=== PATIENT | female | born 1995 | race Caucasian/White ===

== ENCOUNTER 2024-07-23 08:01 | Inpatient (IN) ==
[2024-07-23] MEDS ORDERED: LIDOCAINE 1% LOCAL 20 ML VIAL INFIL PRN (08:53)
[2024-07-23] MEDS ORDERED: OXYTOCIN 30 UNITS/NSS 30 UNITS/500 ML BAG IV PRN (09:02)
--- NOTE | 2024-07-23 09:05 | History & Physical Report ---
Date of Service July 23, 2024 Assessment & Plan (1) Hyperlipidemia: Present on Admission?: Yes (2) Obesity: Present on Admission?: Yes (3) Hypothyroidism: Present on Admission?: Yes (4) Encounter for induction of labor: Present on Admission?: Yes (5) Post term over 40 weeks: Present on Admission?: Yes Plan Admit to L and D Regular diet x 3 then NPO/IV Fluids Preeclampsia labs , total pr/cr ration Cervidil PV for cervical ripening Eventually AROM, Pitocin to augment ;labor Pain meds including epidural as the desires History of Present Illness Chief Complaint: induction of labor for post date and high blood pressure on arrival Primary Care Provider: Dipak Nichols PA-C pt 29 yr old came to L and D c/o regular uterine contractions q 5 min. Denies vaginal bleeding, leaking of fluid per vagina , head aches, blurry vision, epigastric pain etc. reports good movement. On arrival, pt has elevated blood pressures. Allergies Allergy/AdvReac Type Severity Reaction Status Date / Time amoxicillin Allergy Rash Unverified 10/06/23 07:37 Home Medications Medication Instructions Recorded Confirmed Type levothyroxine 125 mcg tablet 125 mcg PO DAILY #90 tabs 06/20/24 07/23/24 Rx 1 tab PO DAILY 07/23/24 07/23/24 History Patient History Medical History History of vesicoureteral reflux Repair 2004 Hypothyroidism Surgical History [place] teeth removed No pertinent past surgical history Family History Father Hypertension Dyslipidemia Grandmother (Maternal) Hypertension Dyslipidemia Hypothyroidism Social History Smoking Status: Former smoker packs per day: 0.5; Hx Alcohol Use: Yes Alcohol Intake Frequency Comment: Occasional Preferred Language: Portuguese Feels Safe at Home: Yes OB History Review of Systems All systems reviewed & are unremarkable except as noted in HPI & below as per Subjective / HPI as per Subjective / HPI as per Subjective / HPI Physical Exam Constitutional: WD/WN, vitals as above Respiratory: normal respiratory effort, lungs clear to auscultation Cardiovascular: RRR, no murmur, no edema Gastrointestinal (Abdomen): normal bowel sounds, soft, nontender, no hepatosplenomegaly Skin: no rashes, warm and dry Psychiatric: A+Ox3, euthymic affect Genitourinary: no vaginal lesions, no adnexal mass Speculum/Bimanual Exam: normal appearance of the vagina OB Exam Abdomen: + fundal height (42 cm), + heart tones, + vertex and + estimated weight (3200 gms) Manual OB Exam: + cervical dilation fingertip, + cervical effacement 50% and + station -2 OB Exam Monitor Tracing: + external FHT monitor used, + external uterine monitor used, + category I and + normal FHT variability Results & Data Vital Signs (Past 12 Hours) Vital Signs Pulse BP 07/23/24 08:37 61 07/23/24 08:37 171/92 H 07/23/24 08:20 63 160/103 H 07/23/24 08:18 60 152/100 H Monitoring External Monitor 140s, Good variability, positive accelerations Tocodynamometer No uterine contractions (1) Hyperlipidemia Hyperlipidemia type: unspecified Qualified Code(s): E78.5 - Hyperlipidemia, unspecified (2) Obesity Obesity classification: unspecified obesity classification (3) Hypothyroidism 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
--- OUTSIDE RECORDS SUMMARY | 2024-07-23 09:21 | External Medical Summary | Summary of Care ---
Author Name Unknown Organization [facility] Address [address] [place] [address] Phone [phone] Care Team Providers Care Hospital Staff Pharmacist Name Role Phone Unavailable Primary Care Provider Unavailabl e Reason for Visit * Reason Comments Return Visit Encounter Details Date Type Department Care Team (Latest Contact Info) Description 07/05/2024 9:15 AM EST Office Visit Gynecology/Obstetri [facility] [address] [place] [address] Art Acevedo MD [address] [place] [address] Encounter for supervision of normal first in third trimester*; Obesity in , antepartum; Hypothyroidism affecting in third trimester; Family history of vesicoureteral reflux; Health counseling Allergies Active Allergy Reactions Criticality Noted Date Comments Amoxicillin Rash 12/06/2023 documented as of this encounter (statuses as of 07/05/2024) Medications Levothyroxine Sodium 125 MCG Oral Capsule (Tirosint) Take 1 Capsule by mouth daily first thing in the morning. (at least 30 min prior to breakfast or other meds) Active 27-0.8 MG Oral Tablet Take 1 Tablet by mouth daily at noon. Active documented as of this encounter (statuses as of 07/05/2024) Active Problems Problem Noted Date Diagnosed Date Health counseling 05/27/2024 Overview (07/05/2024): Problem Action Taken Date entered Entered by Date resolved Depression Denies any current symptoms. Concerned over PPD- Will notify office with any concerns 05/27/2024 Dot Flores RN 05/27/2024 First Support noted 05/27/2024 Dot Flores RN 05/27/2024 Poor dental hygiene Has not been to dentist in greater than 6 months. Encouraged. Office phone number given for [facility] 05/27/2024 Dot Flores RN 05/27/2024 Smoking/tobacco abuse Smoking Education- was vaping prior to . Quit with 05/27/2024 Dot Flores RN 05/27/24 nutrition Attending [facility] - plans to breastfeed has pump already 05/27/2024 Dot Flores RN 05/27/2024 Problem Action Taken Date entered Entered by Date resolved Current needs or questions Patient denies having any current needs or questions 06/10/2024 Lara Do RN 06/10/2024 Problem Action Taken Date entered Entered by Date resolved Current needs or questions Patient denies having any current needs or questions 06/28/2024 Kailash Heredia RN 06/28/24 Problem Action Taken Date entered Entered by Date resolved Current needs or questions Patient denies having any current needs or questions 07/05/2024 Dot Flores RN 07/05/2024 Supervision of normal first 12/20/2023 Obesity in , antepartum 12/20/2023 Overview (01/18/2024): Class 1 The patient's pre-gravid BMI is 33.31. Early GTT normal Hypothyroidism affecting 12/20/2023 Overview (05/27/2024): Sees endocrine at [facility] ([facility] TSH 0.35 on 11/23/23 TSH Results: Lab Results Component Value Date/Time TSH - [facility] 1.00 05/06/2024 12:24 PM Family history of vesicoureteral reflux 06/26/20 24 Overview (12/20/2023): Pt had at , surgically repaired Hyperlipidemia 12/19/2023 Hypothyroidism 12/19/2023 Insulin resistance 12/19/2023 Obesity 12/19/2023 Estimated Date of Delivery Comme nts Yes 07/22/2024 Based on Ultraso und documented as of this encounter (statuses as of 07/05/2024) Immunizations Name Administration Dates Next Due RSV Vac., Bivalent, Perfusion F, Pf,0.5 Ml (Abry svo) 06/28/2024 TDAP, Age 7 and older, IM (Adacel) 05/06/2024 documented as of this encounter Social History Tobacco Use Types Packs/Day Years Used Date Smoking Tobacco: Former Cigarettes Vaporizer Smokeless Tobacco: Never Alcohol Use Standard Drinks/Week Comments Not Currently 0 (1 standard drink = 0.6 oz pur e alcohol) Hunger Vital Sign Answer Date Recorded Within the past 12 months, y ou worried that your food would run out before you got the money to buy more. Never true 11/22/19 Within the past 12 months, t he food you bought just didn't last and you didn't have money to get more. Never true 11/22/2023 [place] Depression Scale Answer Date Recorded [place] Depression Scale Total 7 05/27/2024 The thought of harming myself has occurred to me . Never 05/27/2024 Childcare Answer Date Recorded Do you feel overwhelmed with taking care of a child, family member or friend? No 11/22/2023 Does your family need help f inding childcare? (Household - for ages 0-17 years) Not on file 11/22/2023 Clothing Answer Date Recorded Have you been unable to get clothing when it was really needed? No 11/22/2023 Is your family able to get c lothes or diapers when needed? (Household - for ages 0-17 years) Not on file 11/22/2023 Personal Safety Answer Date Recorded Do you feel unsafe or have concerns for your saf ety? No 11/22/2023 Do you have concerns for you r family's safety? (Household - for ages 0-17 years) Not on file 11/22/2023 Utilities Answer Date Recorded Do you have trouble paying y our heating, water, or electric bill? No 11/22/2023 Is your family able to pay t he heat, water, or electric bill? (Household - for ages 0-17 years) Not on file 11/22/2023 Does your family have access to good internet? (Household - for ages 0-17 years) Not on file 11/22/2023 Employment Status Answer Date Recorded Are you unemployed or without regular income? No 11/22/2023 Does the household have a re lar source of income? (Household - for ages 0-17 years) Not on file 11/22/2023 Social Connections Answer Date Recorded How often do you feel lonely or isolated from th ose around you? Never 11/22/2023 Financial Resource Strain Answer Date R ecorded Do you have any trouble payi ng for your medications, or do you think you might in the future? No 11/22/2023 Does your family have troubl e paying for medicine? (Household - for ages 0-17 years) Not on file 11/22/2023 Transportation Needs Answer Date Record ed READ ONLY Do you have troubl e getting a ride to medical visits or work? Never True 11/22/2023 Does your family have a hard time getting a ride to doctors visits? (Household - for ages 0-17 years) Not on file 11/22/2023 Has lack of transportation k ept you from medical appointments, meetings, work, or from getting things needed for daily living? Check all that apply. (Adult - for ages 18 years and over) Not on file 11/22/2023 Do you (or your family) have trouble finding or paying for a ride (transportation)? (Household - for ages 0-17 years) Not on file 11/22/2023 Housing Stability Answer Date Recorded Do you currently live in a s helter or have no steady place to sleep at night? No 11/22/2023 READ ONLY Do you think you a re at risk of becoming homeless? No 11/22/2023 Does your family worry about paying for your home or becoming homeless? (Household - for ages 0-17 years) Not on file 0 11/22/2023 Are you homeless or worried that you might be in the future? (Adult - for ages 18 years and over) Not on file Are you (or your family) hemalatha eless or worried that you might be in the future? (Household - for ages 0-17 years) Not on file Food Insecurity Answer Date Recorded Do you need food for this week? No 11/22/2023 Are you able to get enough f ood for your family? (Household - for ages 0-17 years) Not on file 11/22/2023 Does your family need food t his week? (Household - for ages 0-17 years) Not on file 11/22/2023 Do you always have enough fo od for your family? (Household - for ages 0-17 years) Not on file 11/22/2023 Estimated Date of Delivery Comme nts Yes 07/22/2024 Based on Ultraso und Sex and Gender Information Value Date Recorded Sex Assigned at Female 11/22/2023 9:19 AM EDT Legal Sex Female 5:42 AM EST Gender Identity Female 11/22/2023 9:19 AM EDT Sexual Orientation Straight 11/22/2023 9: 27 AM EDT documented as of this encounter Last Filed Vital Signs Vital Sign Reading Time Taken Comments Blood Pressure 124/84 07/05/2024 9:28 AM EST Pulse - - Temperature - - Respiratory Rate - - Oxygen Saturation - - Inhaled Oxygen Concentration - - Weight 110.2 kg (243 lb) 07/05/2024 9:28 AM EST Height 163.8 cm (5' 4.5") 07/05/2024 9:28 AM EST Body Mass Index 41.07 07/05/2024 9:28 AM EST documented in this encounter Progress Notes * Art Acevedo MD - 07/05/2024 9:41 AM EST Pt doing well No complaints RTC 1 week * Charisma Fontanez LPN - 07/05/2024 9:28 AM EST 37w4d Denies any concerns documented in this encounter Nursing Notes * Dot Flores RN - 07/05/2024 9:33 AM EST Patient seen by [facility]. documented in this encounter Plan of Treatment Upcoming Encounters Date Type Department Care Team (Late st Contact Info) Description 07/11/2024 4:45 PM EST Office Visit Gynecology/Obstetrics [facility] [address] [place] [address] Libby Ferguson PA-C [address] [place] [address] Nurse C[facility] [address] [place] [address] Health Maintenance Due Date Last Done Comments Depression Screening 2007 COVID-19 Vaccine (2023- season) 2024 Influenza Vaccine (FLU shot) (#1) 2024 TSH 05/06/2025 05/06/2024 Pap Smear 12/19/2026 12/20/2023 DTap/Tdap Vaccines (7 - Td or Tdap) 05/06/2034 05/06/2024, 04/26/2000, 05/17/1996, Additional history exists Hepatitis B Vaccine Completed 01/08/1998, 08/14/1997, 10/28/1996 Pneumococcal Vaccine: Pediatrics (0 to 5 Years) and At-Risk Patients (6 to 18 Years and 19+ Years) Aged Out 10/16/2006 No longer eligib le based on patient's age to complete this topic MENINGOCOCCAL (MENACTRA/MENVEO) Completed 06/21/2013 Gonorrhea / Chlamydia Screen Discontinued 12/20/2023 HPV (Gardasil) Vaccine Aged Out No lo nger eligible based on patient's age to complete this topic documented as of this encounter Medical Devices Not on filedocumented as of this encounter Visit Diagnoses Diagnosis Encounter for supervision of normal first in third trimester- Primary Supervision of normal first Obesity in , antepartum Obesity complicating , childbirth, or the puerperium, antepartum condition or complication Hypothyroidism affecting in third trimester Family history of vesicoureteral reflux Family history of other genitourinary diseases Health counseling Other specified counseling documented in this encounter
--- OUTSIDE RECORDS SUMMARY | 2024-07-23 09:21 | External Medical Summary | Summary of Care ---
Author Name Unknown Organization [facility] Address [address] [place] [address] Phone [phone] Care Team Providers Care Neonatal Icu Coordinator Name Role Phone Unavailable Primary Care Provider Unavailabl e Reason for Visit * Reason Comments Return Visit Encounter Details Date Type Department Care Team (Late st Contact Info) Description 07/11/2024 4:45 PM EST Office Visit [facility]necology/[facility]stetri [facility] [address] [facility] [place] [address] Libby Ferguson PA-C [address] [place] [address] Nurse [facility] [address] [place] [address] Encounter for supervision of normal first in third trimester*; Obesity in , antepartum; Hypothyroidism affecting in third trimester; Family history of vesicoureteral reflux; Health counseling Allergies Active Allergy Reactions Criticality Noted Date Comments Amoxicillin Rash 12/06/2023 documented as of this encounter (statuses as of 07/11/2024) Medications Levothyroxine Sodium 125 MCG Oral Capsule (Tirosint) Take 1 Capsule by mouth daily first thing in the morning. (at least 30 min prior to breakfast or other meds) Active 27-0.8 MG Oral Tablet Take 1 Tablet by mouth daily at noon. Active documented as of this encounter (statuses as of 07/11/2024) Active Problems Problem Noted Date Diagnosed Date Health counseling 05/27/2024 Overview (07/11/2024): Problem Action Taken Date entered Entered by Date resolved Depression Denies any current symptoms. Concerned over PPD- Will notify office with any concerns 05/27/2024 Dot Flores RN 05/27/2024 First Support noted 05/27/2024 Dot Flores RN 05/27/2024 Poor dental hygiene Has not been to dentist in greater than 6 months. Encouraged. Office phone number given for [facility] 05/27/2024 Dot Flores RN 05/27/2024 Smoking/tobacco abuse Smoking Education- was vaping prior to . Quit with 05/27/2024 Dot Flores RN 05/27/24 nutrition Attending [facility] - plans to breastfeed has pump already [...] or questions 07/05/2024 Dot Flores RN 07/05/2024 Problem Action Taken Date entered Entered by Date resolved Current needs or questions Patient denies having any current needs or questions 07/11/2024 Dot Flores RN 07/11/2024 Supervision of normal first 12/20/2023 Obesity in , antepartum 12/20/2023 Overview (01/18/2024): Class 1 The patient's pre-gravid BMI is 33.31. Early GTT normal Hypothyroidism affecting 12/20/2023 Overview (05/27/2024): Sees endocrine at [facility] ([facility]) TSH 0.35 on 11/23/23 TSH Results: Lab Results Component Value Date/Time TSH - [facility] 1.00 05/06/2024 12:24 PM Family history of vesicoureteral reflux 12/20/19 Overview (12/20/2023): Pt had at , surgically repaired Hyperlipidemia 12/19/2023 Hypothyroidism 12/19/2023 Insulin resistance 12/19/2023 Obesity 12/19/2023 Estimated Date of Delivery Comme nts Yes 07/22/2024 Based on Ultraso und documented as of this encounter (statuses as of 07/11/2024) Immunizations Name Administration Dates Next Due RSV [...] money to get more. Never true 11/22/2023 [place] Depression Scale Answer Date Recorded [place] Depression Scale Total 7 05/27/2024 The thought [...] 11/22/2023 Does the household have a re gular source of income? (Household - for ages [...] Sign Reading Time Taken Comments Blood Pressure 122/78 07/11/2024 4:30 PM EST Pulse - - Temperature - - Respiratory Rate - - Oxygen Saturation - - Inhaled Oxygen Concentration - - Weight 115.2 kg (254 lb) 07/11/2024 4:30 PM EST Height 163.8 cm (5' 4.5") 07/11/2024 4:30 PM EST Body Mass Index 42.93 07/11/2024 4:30 PM EST documented in this encounter Progress Notes * Libby Ferguson PA-C - 07/11/2024 5:30 PM EST 38w3d Denies LOF, VB. Having BH contractions. Has been having menstrual like cramping throughout which has been her normal. Would like cervical check. [place] pop in abdomen yesterday, no pain. No gush of fluid or leaking of any kind. Feeling baby move when she presses on him. Pt states has not really felt baby move throughout as she has anterior placenta. Does not really do kick counts. Unsure if she would get 10 movements in 2 hours. Reviewed IOL, pt would like to schedule for postdates. Scheduled 07/30/2024 based on availability. ASSESSMENT assessment with Non-stress Test completed on 07/11/2024 at 38.3 weeks gestation for indicationof decreased movement heart baseline: 140 bpm Variability: Moderate Decelerations: absent Accelerations: present Contractions: None NST start time: 16:58 NST stop time: 15:19 NST strip reviewed, interpreted, and approved by OB provider, Libby Ferguson PA-C. NST strip stored in clinic storage file RTC in 1 week Labor precautions Libby Ferguson PA-C * Charisma Fontanez LPN - 07/11/2024 4:31 PM EST 38w3d Would like cervix check documented in this encounter Nursing Notes * Dot Flores RN - 07/11/2024 4:39 PM EST Patient seen by [facility] [employer] Deputy Director. Denies any concerns. documented in this encounter Plan of Treatment Upcoming Encounters Date Type Department Care Team (Late st Contact Info) Description 07/18/2024 8:00 AM EST Office Visit Gynecology/Obstetrics [facility] [address] [place] [phone] Yajaira Núñez CRNP [address] [place] [address] Health Maintenance Due Date Last Done Comments [...]
--- OUTSIDE RECORDS SUMMARY | 2024-07-23 09:21 | External Medical Summary | Summary of Care ---
Author Name Unknown Organization [facility] Address [address] [place] [address] Phone [phone] Care Team Providers Care Yoghurt Maker Name Role Phone Unavailable Primary Care Provider Unavailabl e Reason for Visit * Reason Comments Return Visit Encounter Details Date Type Department Care Team (Latest Contact Info) Description 07/18/2024 8:00 AM EST Office Visit Gynecology/Obstetri [facility] [address] [place] [address] Yajaira Núñez CRNP [address] [place] [address] Encounter for supervision of normal first in third trimester*; Obesity in , antepartum; Hypothyroidism affecting in third trimester; Family history of vesicoureteral reflux; Health counseling Allergies Active Allergy Reactions Criticality Noted Date Comments Amoxicillin Rash 12/06/2023 documented as of this encounter (statuses as of 07/18/2024) Medications Levothyroxine Sodium 125 MCG Oral Capsule (Tirosint) Take 1 Capsule by mouth daily first thing in the morning. (at least 30 min prior to breakfast or other meds) Active 27-0.8 MG Oral Tablet Take 1 Tablet by mouth daily at noon. Active documented as of this encounter (statuses as of 07/18/2024) Active Problems Problem Noted Date Diagnosed Date Health counseling 05/27/2024 Overview (07/18/2024): Problem Action Taken Date entered Entered by Date resolved Depression Denies any current symptoms. Concerned over PPD- Will notify office with any concerns 05/27/2024 Dot Flores RN 05/27/2024 First Support noted 05/27/2024 Dot Flores RN 05/27/2024 Poor dental hygiene Has not been to dentist in greater than 6 months. Encouraged. Office phone number given for [facility] 05/27/2024 Dot Flores RN 05/27/2024 Smoking/tobacco abuse Smoking Education- was vaping prior to . Quit with 05/27/2024 Dot Flores RN 05/27/[address] [facility] - plans to breastfeed has [...] or questions 07/11/2024 Dot Flores RN 07/11/2024 Problem Action Taken Date entered Entered by Date resolved Current needs or questions Patient denies having any current needs or questions 07/18/2024 Dot Flores RN 07/18/2024 Supervision of normal first 12/20/2023 Obesity in , antepartum 12/20/2023 Overview (01/18/2024): Class 1 The patient's pre-gravid BMI is 33.31. Early GTT normal Hypothyroidism affecting 12/20/2023 Overview (05/27/2024): Sees endocrine at [facility] ([facility]) TSH 0.35 on 11/23/23 TSH Results: Lab Results Component Value Date/Time TSH - [facility] 1.00 05/06/2024 12:24 PM Family history of vesicoureteral reflux 12/20/19 Overview (12/20/2023): Pt had at , surgically repaired Hyperlipidemia 12/19/2023 Hypothyroidism 12/19/2023 Insulin resistance 12/19/2023 Obesity 12/19/2023 Estimated Date of Delivery Comme nts Yes 07/22/2024 Based on Ultraso und documented as of this encounter (statuses as of 07/18/2024) Immunizations Name Administration Dates Next Due RSV [...] money to get more. Never true 11/22/2023 [place] Depression Scale Answer Date Recorded [place] Depression Scale Total 7 05/27/2024 The thought [...] Sign Reading Time Taken Comments Blood Pressure 122/74 07/18/2024 7:59 AM EST Pulse - - Temperature - - Respiratory Rate - - Oxygen Saturation - - Inhaled Oxygen Concentration - - Weight 115.2 kg (254 lb) 07/18/2024 7:59 AM EST Height 163.8 cm (5' 4.5") 07/18/2024 7:59 AM EST Body Mass Index 42.93 07/18/2024 7:59 AM EST documented in this encounter Progress Notes * Yajaira Núñez CRNP - 07/18/2024 8:18 AM EST 39w3d No complaints. Intermittent BH contractions. Discussed contraception, she is not planning to use any. States she underwent infertility treatmetns in the past, that did not result in , then became spontaneously. Discussed that she could have another spontaneous very quickly, and she needs to be prepared for that if she chooses to use no contraception. Has IOL 2/4. Requesting cervical check. Parking Analyst Documentation Provider requested manager of application development. Name of manager of application development: SHYANNE Ware * Charisma Fontanez LPN - 07/18/2024 7:59 AM EST 39w3d Would like cervix checked documented in this encounter Plan of Treatment Upcoming Encounters Date Type Department Care Team (Late st Contact Info) Description 07/25/2024 9:15 AM EST Office Visit Gynecology/[facility] [address] [place] [address] Luke Danielle MD [address] [place] [phone] Health Maintenance Due Date Last Done Comments [...]
--- OUTSIDE RECORDS SUMMARY | 2024-07-23 09:21 | External Medical Summary | Summary of Care ---
Author Name Unknown Organization [facility] Address [address] [place] [address] Phone [phone] Care Team Providers Care Manager Wind Name Role Phone Unavailable Primary Care Provider Unavailabl e Encounter Details Date Type Department Care Team (Late st Contact Info) Description 07/15/2024 Population Health External Data Unspecified Department Allergies Active Allergy Reactions Criticality Noted Date Comments Amoxicillin Rash 12/06/2023 documented as of this encounter (statuses as of 07/15/2024) Medications Levothyroxine Sodium 125 MCG Oral Capsule (Tirosint) Take 1 Capsule by mouth daily first thing in the morning. (at least 30 min prior to breakfast or other meds) Active 27-0.8 MG Oral Tablet Take 1 Tablet by mouth daily at noon. Active documented as of this encounter (statuses as of 07/15/2024) Active Problems Problem Noted Date Diagnosed Date [...] months. Encouraged. Office phone number given for [facility] 05/27/2024 Dot Flores RN 05/27/2024 Smoking/tobacco abuse Smoking Education- was vaping prior to . Quit with 05/27/2024 Dot Flores RN 05/27/24 nutrition Attending [facility] - plans to breastfeed has pump already [...] affecting 12/20/2023 Overview (05/27/2024): Sees endocrine at [facility] ([facility]) TSH 0.35 on 11/23/23 TSH Results: Lab Results Component Value Date/Time TSH - [facility] 1.00 05/06/2024 12:24 PM Family history of vesicoureteral reflux 12/20/19 Overview (12/20/2023): Pt had at , surgically repaired Hyperlipidemia 12/19/2023 Hypothyroidism 12/19/2023 Insulin resistance 12/19/2023 Obesity 12/19/2023 Estimated Date of Delivery Comme nts Yes 07/22/2024 Based on Ultraso und documented as of this encounter (statuses as of 07/15/2024) Immunizations Name Administration Dates Next Due RSV [...] money to buy more. Never true 11/22/19 24 Within the past 12 months, t he food you bought just didn't last and you didn't have money to get more. Never true 11/22/2023 [place] Depression Scale Answer Date Recorded [place] Depression Scale Total 7 05/27/2024 The thought [...] AM EDT documented as of this encounter Plan of Treatment Upcoming Encounters Date Type Department Care Team (Late st Contact Info) Description 07/18/2024 8:00 AM EST Office Visit Gynecology/Obstetrics [place] [address] [place] [address] Yajaira Núñez CRNP [address] [place] [address] Health Maintenance Due Date Last Done Comments Depression Screening 2007 COVID-19 Vaccine ( season) 2024 Influenza Vaccine (FLU shot) (#1) [...]
--- OUTSIDE RECORDS SUMMARY | 2024-07-23 09:21 | External Medical Summary | Summary of Care ---
Author Name Unknown Organization [facility] Address [address] [place] [address] Phone [phone] Care Team Providers Care Attorney Recruiter Name Role Phone Unavailable Primary Care Provider Unavailabl e Reason for Visit * Reason Comments Return Visit Encounter Details Date Type Department Care Team (Latest Contact Info) Description 07/18/2024 8:00 AM EST Office Visit Gynecology/Obstetri [place] [address] [place] [address] Yajaira Núñez CRNP [address] [place] [address] Encounter for supervision of normal first in [...] months. Encouraged. Office phone number given for [facility] 05/27/2024 Dot Flores RN 05/27/2024 Smoking/tobacco abuse Smoking Education- was vaping prior to . Quit with 05/27/2024 Dot Flores RN 05/27/24 nutrition Attending [facility] - plans to breastfeed has pump [...] affecting 12/20/2023 Overview (05/27/2024): Sees endocrine at [facility] ([place]) TSH 0.35 on 11/23/23 TSH Results: [...] money to get more. Never true 11/22/2023 [place] Depression Scale Answer Date Recorded [place] Depression Scale Total 7 05/27/2024 The thought [...] contraception. Has IOL 2/4. Requesting cervical check. Library Serials Assistant Documentation Provider requested telegraph plant maintainer. Name of telegraph plant maintainer: SHYANNE Ware * Charisma Fontanez LPN - 07/18/2024 7:59 AM EST [id number] Would like cervix checked documented in this encounter Plan of Treatment Upcoming Encounters Date Type Department Care Team (Late st Contact Info) Description 07/25/2024 9:15 AM EST Office Visit Gynecology/Obstetrics [facility] [address] [place] [address] Luke Danielle MD [address] [place] [phone] Health Maintenance Due Date Last Done Comments [...]
--- OUTSIDE RECORDS SUMMARY | 2024-07-23 09:22 | External Medical Summary | Summary of Care ---
Author Name Unknown Organization [facility] Address [address] [place] [address] Phone [phone] Care Team Providers Care Commercial Maintenance Technician Name Role Phone Unavailable Primary Care Provider Unavailabl e Reason for Visit * Reason Comments Return Visit Encounter Details Date Type Department Care Team (Late st Contact Info) Description 06/28/2024 2:45 PM EST Office Visit Gynecology/Obstetri [place] [address] [facility] [place] [address] Art Acevedo MD [address] [place] [address] Nurse César [facility] [place] [address] [place] [address] Encounter for supervision of normal first in third trimester*; Obesity in , antepartum; Hypothyroidism affecting in third trimester; Family history of vesicoureteral reflux; Health counseling Allergies Active Allergy Reactions Criticality Noted Date Comments Amoxicillin Rash 12/06/2023 documented as of this encounter (statuses as of 06/28/2024) Medications Levothyroxine Sodium 125 MCG Oral Capsule (Tirosint) Take 1 Capsule by mouth daily first thing in the morning. (at least 30 min prior to breakfast or other meds) Active 27-0.8 MG Oral Tablet Take 1 Tablet by mouth daily at noon. Active documented as of this encounter (statuses as of 06/28/2024) Active Problems Problem Noted Date Diagnosed Date Health counseling 05/27/2024 Overview (06/28/2024): Problem Action Taken Date entered Entered by Date resolved Depression Denies any current symptoms. Concerned over PPD- Will notify office with any concerns 05/27/2024 Dot Flores RN 05/27/2024 First Support noted 05/27/2024 Dot Flores RN 05/27/2024 Poor dental hygiene Has not been to dentist in greater than 6 months. Encouraged. Office phone number given for [facility] 05/27/2024 Dot Flores RN 05/27/2024 Smoking/tobacco abuse Smoking Education- was vaping prior to . Quit with 05/27/2024 Dot Flores RN 05/27/[address] [facility] - plans to breastfeed has pump already [...] or questions 06/28/2024 Kailash Heredia RN 06/28/24 Supervision of normal first 12/20/2023 Obesity in , antepartum 12/20/2023 Overview (01/18/2024): Class 1 The patient's pre-gravid BMI is 33.31. Early GTT normal Hypothyroidism affecting 12/20/2023 Overview (05/27/2024): Sees endocrine at [facility] ([facility]) TSH 0.35 on 11/23/23 TSH Results: Lab Results Component Value Date/Time TSH - [facility] 1.00 05/06/2024 12:24 PM Family history of vesicoureteral reflux 12/20/19 Overview (12/20/2023): Pt had at , surgically repaired Hyperlipidemia 12/19/2023 Hypothyroidism 12/19/2023 Insulin resistance 12/19/2023 Obesity 12/19/2023 Estimated Date of Delivery Comme nts Yes 07/22/2024 Based on Ultraso und documented as of this encounter (statuses as of 06/28/2024) Immunizations Name Administration Dates Next Due RSV [...] money to get more. Never true 11/22/2023 [place] Depression Scale Answer Date Recorded [place] Depression Scale Total 7 05/27/2024 The thought [...] AM EDT documented as of this encounter Progress Notes * Art Acevedo MD - 06/28/2024 3:17 PM EST Pt doing well No complaints GBs culx done documented in this encounter Nursing Notes * Charisma Fontanez LPN - 06/28/2024 3:58 PM EST Patient here for rsv injection. Patient doing well no complaints. Injection given IM as ordered. Patient tolerated well. Patient to follow up as directed. Patient instructed to call if any complications. Patient verbalized understanding of instructions given and her follow up appt for 1 week Injection site: Left Deltoid Medication Source: Dispensed stock medication * Charisma Fontanez LPN - 06/28/2024 3:02 PM EST [id number] Nbeed gbs Rsv * Kailash Heredia RN - 06/28/2024 3:02 PM EST Patient seen by [facility] Payroll Assistant. Patient denies any questions or concerns. documented in this encounter Plan of Treatment Upcoming Encounters Date Type Department Care Team (Late st Contact Info) Description 07/05/2024 9:15 AM EST Office Visit Gynecology/Obstetrics [facility] [address] [place] [address] Art Acevedo MD [address] [place] [address] Pending Results Name Type Priority Associated Diagnoses Date /Time GROUP B STREP CULTURE/PCR Lab Routine Encounter for supervision of normal first in third trimester 06/28/2024 3:17 PM EST Health Maintenance Due Date Last Done Comments [...]
--- OUTSIDE RECORDS SUMMARY | 2024-07-23 09:22 | External Medical Summary | Summary of Care ---
Author Name Unknown Organization [facility] Address [address] [place] [address] Phone [phone] Care Team Providers Care Geophysical Prospecting Surveyor Name Role Phone Unavailable Primary Care Provider Unavailabl e Encounter Details Date Type Department Care Team (Late st Contact Info) Description 06/04/2024 10:15 AM EST Office Visit Gynecology/Obstetri [place] [address] [facility] [place] [address] Yoselin Duffy CRNP [address] [place] [address] César Non Stress Tests [place] [address] [place] [address] Decreased movements in third trimester, single or unspecified fetus*; Encounter for supervision of normal first in third trimester; Obesity in , antepartum; Hypothyroidism affecting in third trimester; Family history of vesicoureteral reflux; Health counseling Allergies Active Allergy Reactions Criticality Noted Date Comments Amoxicillin Rash 12/06/2023 documented as of this encounter (statuses as of 06/04/2024) Medications Levothyroxine Sodium 125 MCG Oral Capsule (Tirosint) Take 1 Capsule by mouth daily first thing in the morning. (at least 30 min prior to breakfast or other meds) Active 27-0.8 MG Oral Tablet Take 1 Tablet by mouth daily at noon. Active documented as of this encounter (statuses as of 06/04/2024) Active Problems Problem Noted Date Diagnosed Date Health counseling 05/27/2024 Overview (05/27/2024): Problem Action Taken Date entered Entered by Date resolved Depression Denies any current symptoms. Concerned over PPD- Will notify office with any concerns 05/27/2024 Dot Flores RN 05/27/2024 First Support noted 05/27/2024 Dot Flores RN 05/27/2024 Poor dental hygiene Has not been to dentist in greater than 6 months. Encouraged. Office phone number given for [facility] 05/27/2024 Dot Flores RN 05/27/2024 Smoking/tobacco abuse Smoking Education- was vaping prior to . Quit with 05/27/2024 Dot Flores RN 05/27/24 nutrition Attending [place] - plans to breastfeed has pump already 05/27/2024 Dot Flores RN 05/27/2024 Supervision of normal first 12/20/2023 Obesity in , antepartum 12/20/2023 Overview (01/18/2024): Class 1 The patient's pre-gravid BMI is 33.31. Early GTT normal Hypothyroidism affecting 12/20/2023 Overview (05/27/2024): Sees endocrine at [facility] ([facility]) TSH 0.35 on 11/23/23 TSH Results: Lab Results Component Value Date/Time TSH - [facility] 1.00 05/06/2024 12:24 PM Family history of vesicoureteral reflux 12/20/19 Overview (12/20/2023): Pt had at , surgically repaired Hyperlipidemia 12/19/2023 Hypothyroidism 12/19/2023 Insulin resistance 12/19/2023 Obesity 12/19/2023 Estimated Date of Delivery Comme nts Yes 07/22/2024 Based on Ultraso und documented as of this encounter (statuses as of 06/04/2024) Immunizations Name Administration Dates Next Due TDAP, Age 7 and older, IM (Adacel) [...] money to get more. Never true 11/22/2023 [place] Depression Scale Answer Date Recorded [place] Depression Scale Total 7 05/27/2024 The thought [...] Sign Reading Time Taken Comments Blood Pressure 104/70 06/04/2024 10:31 AM EST Pulse - - Temperature - - Respiratory Rate - - Oxygen Saturation - - Inhaled Oxygen Concentration - - Weight 109.3 kg (241 lb) 06/04/2024 10:31 AM EST Height 163.8 cm (5' 4.5") 06/04/2024 10:31 AM ES T Body Mass Index 40.73 06/04/2024 10:31 AM EST documented in this encounter Progress Notes * Yoselin Duffy CRNP - 06/04/2024 10:32 AM EST 33w1d Here for acute visit; no movement since 8-9 pm on Monday. Has a known anterior placenta but normally still has predictable movements. Some constant pressure, no bladder changes - advised belly band. No ctx, leaking, bleeding. NST today. hour, LOF/bleeding. Reactive NST, + movement noted. Discussed importance of calling the office right away with concerns of decreased FM, regular painful ctx, LOF, bleeding. Advised not to use patient portal for time-sensitive concerns. Return for scheduled OB appt. ASSESSMENT assessment with Non-stress Test completed on 06/04/2024 at 33.1 weeks gestation for indication of decreased movement heart baseline: 140 bpm Variability: Moderate Decelerations: absent Accelerations: present Contractions: None NST start time: 1027 NST stop time: 1100 NST strip reviewed, interpreted, and approved by OB provider, SHYANNE Rivera . NST strip stored in clinic storage file SHYANNE Rivera documented in this encounter Plan of Treatment Upcoming Encounters Date Type Department Care Team (Late st Contact Info) Description 06/10/2024 11:15 AM EST Office Visit Gynecology/Obstetrics, [place] [address] [place] [address] Deana Santos, AFSHIN [address] [facility] [place] [address] [address], [facility] Nurse [address] [place] [address] Health Maintenance Due Date Last Done Comments Depression Screening 2007 COVID-19 Vaccine ( season) 2024 Influenza Vaccine (FLU shot) (#1) 2024 TSH 05/06/2025 05/06/2024 Pap Smear 12/19/2026 12/20/2023 DTap/Tdap Vaccines (7 - Td or Tdap) 05/06/2034 05/06/2024, 04/26/2000, 05/17/1996, Additional history exists Hepatitis B Vaccine Completed 01/08/1998, 08/14/1997, 10/28/1996 Pneumococcal Vaccine: Pediatrics (0 to 5 Years) and At-Risk Patients (6 to 64 Years) Aged Out 10/16/2006 No longer eligible based on patient's age to complete this topic MENINGOCOCCAL (MENACTRA/MENVEO) Completed 06/21/2013 Gonorrhea / Chlamydia Screen Discontinued 12/20/2023 HPV (Gardasil) Vaccine Aged Out No lo nger eligible based on patient's age to complete this topic documented as of this encounter Medical Devices Not on filedocumented as of this encounter Visit Diagnoses Diagnosis Decreased movements in third trimester, single or unspecified fetus- Primary Encounter for supervision of normal first in third trimester Supervision of normal first Obesity in , antepartum Obesity complicating , childbirth, or the puerperium, antepartum condition or complication Hypothyroidism affecting in third trimester Family history of vesicoureteral reflux Family history of other genitourinary diseases Health counseling Other specified counseling documented in this encounter
--- OUTSIDE RECORDS SUMMARY | 2024-07-23 09:22 | External Medical Summary ---
Author Name Unknown Address Unknown Organization K01:[facility] [place] [place] [address] [address] Laboratory Report Ordering Provider Test Date Status DELMY FARLEY 06/28/2024 15:17:59 Final Observation Date Value Abnormality Reference (Units ) Status Streptococcus agalactiae DNA [Presence] in Specimen by LAURE with probe detection 06/28/2024 15:17:59 Negative Negative Final No Group B Streptococcus det ected by culture-enhanced PCR (amplified probe). GBS GBSCT - [facility] 06/28/2024 15:17:59 0.0 Final GBS SPCCT - [facility] 06/28/2024 15:17:59 31.8 Final Performing Location [facility] [place] [address]
--- OUTSIDE RECORDS SUMMARY | 2024-07-23 09:22 | External Medical Summary | Summary of Care ---
Author Name Unknown Organization [facility] Address [address] [place] [address] Phone [phone] Care Team Providers Care Shortage Worker Name Role Phone Unavailable Primary Care Provider Unavailabl e Reason for Visit * Reason Comments Ravi Montaño Return 34w Encounter Details Date Type Department Care Team (Late st Contact Info) Description 06/10/2024 11:15 AM EST Office Visit Gynecology/Obstetri Ashley abraham [address] [facility] [place] [address] Deana Santos PA-C [address] [facility] [place] [address] Ravi Su Nurse [address] [place] [address] Supervision of normal first , antepartum*; Obesity in , antepartum; Hypothyroidism affecting , antepartum; Family history of vesicoureteral reflux; Health counseling Allergies Active Allergy Reactions Criticality Noted Date Comments Amoxicillin Rash 12/06/2023 documented as of this encounter (statuses as of 06/10/2024) Medications Levothyroxine Sodium 125 MCG Oral Capsule (Tirosint) Take 1 Capsule by mouth daily first thing in the morning. (at least 30 min prior to breakfast or other meds) Active 27-0.8 MG Oral Tablet Take 1 Tablet by mouth daily at noon. Active documented as of this encounter (statuses as of 06/10/2024) Active Problems Problem Noted Date Diagnosed Date Health counseling 05/27/2024 Overview (06/10/2024): Problem Action Taken Date entered Entered by Date resolved Depression Denies any current symptoms. Concerned over PPD- Will notify office with any concerns 05/27/2024 Dot Flores RN 05/27/2024 First Support noted 05/27/2024 Dot Flores RN 05/27/2024 Poor dental hygiene Has not been to dentist in greater than 6 months. Encouraged. Office phone number given for [facility] 05/27/2024 Dot Flores RN 05/27/2024 Smoking/tobacco [...] or questions 06/10/2024 Lara Do RN 06/10/2024 Supervision of normal first 12/20/2023 Obesity in , antepartum 12/20/2023 Overview (01/18/2024): Class 1 The patient's pre-gravid BMI is 33.31. Early GTT normal Hypothyroidism affecting 12/20/2023 Overview (05/27/2024): Sees endocrine at [facility] ([facility]) TSH 0.35 on 11/23/23 TSH Results: Lab Results Component Value Date/Time TSH - [facility] 1.00 05/06/2024 12:24 PM Family history of vesicoureteral reflux 12/20/19 Overview (12/20/2023): Pt had at , surgically repaired Hyperlipidemia 12/19/2023 Hypothyroidism 12/19/2023 Insulin resistance 12/19/2023 Obesity 12/19/2023 Estimated Date of Delivery Comme nts Yes 07/22/2024 Based on Ultraso und documented as of this encounter (statuses as of 06/10/2024) Immunizations Name Administration Dates Next Due TDAP, Age 7 and older, IM (Adacel) 05/06/2024 documented as of this encounter Social History Tobacco Use Types Packs/Day Years Used Date Smoking Tobacco: Former Cigarettes Vaporizer Smokeless Tobacco: Never Tobacco Cessation:Counseling Given: Not Answered Alcohol Use Standard Drinks/Week Comments Not Currently [...] money to get more. Never true 11/22/2023 [place] Depression Scale Answer Date Recorded [place] Depression Scale Total 7 05/27/2024 The thought [...] Sign Reading Time Taken Comments Blood Pressure 120/80 06/10/2024 11:12 AM EST Pulse - - Temperature 36 C (96.8 F) 06/10/2024 11:12 AM EST Respiratory Rate - - Oxygen Saturation - - Inhaled Oxygen Concentration - - Weight 110 kg (242 lb 9.6 oz) 06/10/2024 11:12 A M EST Height - - Body Mass Index 41 06/04/2024 10:31 AM EST documented in this encounter Progress Notes * Deana Santos PA-C - 06/10/2024 11:13 AM EST Beatrice Penny is a 29 year old female here for her routine OB appointment at 34w0d Her Estimated Date of Delivery: 07/22/24 REVIEW OF SYSTEMS: She affirms movement. Denies vaginal bleeding, LOF, contractions, N/V, headaches PHYSICAL EXAM: Filed Vitals: 06/10/24 1112 BP: 120/80 Temp: 36 C (96.8 F) Weight: 110 kg (242 lb 9.6 oz) +FHT 140s Fundal height 35 ASSESSMENT/PLAN: Supervision of normal first (Primary) Obesity in , antepartum Hypothyroidism affecting Family history of vesicoureteral reflux Health counseling Check-out note: Schedule weekly appointments at [facility] - starting after 1/3 appointment Supervision of - discussed GBS and to expect swab to be complete at next visit - labor precautions and kick counts reviewed - RTO in 2 weeks Deana Santos PA-C documented in this encounter Nursing Notes * Lara Do, RN - 06/10/2024 11:18 AM EST Patient seen by [facility] Personnel Recruiter. Discussed foods to avoid and/or limit in and . Reviewed info in book. * Ashley Beckett LPN - 06/10/2024 11:10 AM EST Chief Complaint Patient presents with [facility] Return 34w Pt is with no concerns. Ashley Beckett LPN documented in this encounter Plan of Treatment Upcoming Encounters Date Type Department Care Team (Late st Contact Info) Description 06/28/2024 2:45 PM EST Office Visit Gynecology/Obstetrics [place] [address] [place] [address] Art Acevedo MD [address] [place] [address] Nurse César [facility] Return [place] [address] [place] [address] Health Maintenance Due Date Last Done Comments Depression Screening 2007 COVID-19 Vaccine ( - season) 2024 Influenza Vaccine (FLU shot) (#1) [...] as of this encounter Visit Diagnoses Diagnosis Supervision of normal first , antepartum- Primary Obesity in , antepartum Obesity complicating , childbirth, or the puerperium, antepartum condition or complication Hypothyroidism affecting , antepartum Family history of vesicoureteral reflux Family history of other genitourinary diseases Health counseling Other specified counseling documented in this encounter
--- OUTSIDE RECORDS SUMMARY | 2024-07-23 09:22 | External Medical Summary | Summary of Care ---
Author Name Unknown Organization [facility] Address [address] [place] [address] Phone [phone] Care Team Providers Care Data Entry Processor Name Role Phone Unavailable Primary Care Provider Unavailabl e Encounter Details Date Type Department Care Team (Late st Contact Info) Description 06/11/2024 Population Health External Data Unspecified Department Allergies Active Allergy Reactions Criticality Noted Date Comments Amoxicillin Rash 12/06/2023 documented as of this encounter (statuses as of 06/11/2024) Medications Levothyroxine Sodium 125 MCG Oral Capsule (Tirosint) Take 1 Capsule by mouth daily first thing in the morning. (at least 30 min prior to breakfast or other meds) Active 27-0.8 MG Oral Tablet Take 1 Tablet by mouth daily at noon. Active documented as of this encounter (statuses as of 06/11/2024) Active Problems Problem Noted Date Diagnosed Date [...] months. Encouraged. Office phone number given for [facility] 05/27/2024 Dot Flores RN 05/27/2024 Smoking/tobacco abuse Smoking Education- was vaping prior to . Quit with 05/27/2024 Dot Flores RN 05/27/24 nutrition Attending [facility] - plans to breastfeed has pump [...] 12/20/2023 Overview (05/27/2024): Sees endocrine at [facility] ([facility]) TSH 0.35 on 11/23/23 TSH Results: Lab Results Component Value Date/Time TSH - [facility] 1.00 05/06/2024 12:24 PM Family history of vesicoureteral reflux 12/20/19 24 Overview (12/20/2023): Pt had at , surgically repaired Hyperlipidemia 12/19/2023 Hypothyroidism 12/19/2023 Insulin resistance 12/19/2023 Obesity 12/19/2023 Estimated Date of Delivery Comme nts Yes 07/22/2024 Based on Ultraso und documented as of this encounter (statuses as of 06/11/2024) Immunizations Name Administration Dates Next Due TDAP, [...] money to get more. Never true 11/22/2023 [place] Depression Scale Answer Date Recorded [place] Depression Scale Total 7 05/27/2024 The thought [...] 06/28/2024 2:45 PM EST Office Visit Gynecology/Obstetrics [facility] Lindsey [address] [place] [id number] Art Acevedo MD [address] [place] [address] Nurse [facility] [address] [place] [address] Health Maintenance Due Date Last Done Comments [...]
--- OUTSIDE RECORDS SUMMARY | 2024-07-23 09:22 | External Medical Summary | Summary of Care ---
Author Name Unknown Organization [facility] Address [address] [place] [address] Phone [phone] Care Team Providers Care Supervisor Quilting Name Role Phone Unavailable Primary Care Provider Unavailabl e Reason for Visit * Reason Comments Ravi Montaño Return 34w Encounter Details Date Type Department Care Team (Late st Contact Info) Description 06/10/2024 11:15 AM EST Office Visit Gynecology/Obstetri Ashley abraham [address] [facility] [place] [address] Deana Santos PA-C [address] [facility] [place] [address] Ravi Su Nurse [address] [place] [address] Supervision of normal first , [...] months. Encouraged. Office phone number given for [facility] 05/27/2024 Dot Flores RN 05/27/2024 Smoking/tobacco abuse Smoking Education- was vaping prior to . Quit with 05/27/2024 Dot Flores RN 05/27/24 nutrition Attending [facility] - plans to breastfeed has [...] affecting 12/20/2023 Overview (05/27/2024): Sees endocrine at [facility] ([facility]) TSH 0.35 on 11/23/23 TSH Results: [...] money to get more. Never true 11/22/2023 [place] Depression Scale Answer Date Recorded [place] Depression Scale Total 7 05/27/2024 The thought [...] counseling Check-out note: Schedule weekly appointments at [facility] - starting after 1/3 appointment Supervision of - discussed GBS and to expect swab to be complete at next visit - labor precautions and kick counts reviewed - RTO in 2 weeks Deana Santos PA-C documented in this encounter Nursing Notes * Ashley Beckett LPN - 06/10/2024 12:54 PM EST Third trimester education reviewed and discussed. Handouts provided including information on recognizing the signs of labor including phone numbers to call when in labor, post- appointments andsafe sleep. Ashley Beckett LPN * Lara Do RN - 06/10/2024 11:18 AM EST Patient seen by [facility] [employer] Supervisor. Discussed foods to avoid and/or limit in [...] Office Visit Gynecology/Obstetrics [place] [address] [place] [address] Art Acevedo MD [address] [place] [address] Nurse [facility] [address] [place] [address] Health Maintenance Due Date Last Done Comments [...]
--- OUTSIDE RECORDS SUMMARY | 2024-07-23 09:22 | External Medical Summary | Summary of Care ---
Author Name Unknown Organization [facility] Address [address] [place] [address] Phone [phone] Care Team Providers Care Marine Resource Economist Name Role Phone Unavailable Primary Care Provider Unavailabl e Encounter Details Date Type Department Care Team (Late st Contact Info) Description 07/01/2024 Population Health External Data Unspecified Department Allergies Active Allergy Reactions Criticality Noted Date Comments Amoxicillin Rash 12/06/2023 documented as of this encounter (statuses as of 07/01/2024) Medications Levothyroxine Sodium 125 MCG Oral Capsule (Tirosint) Take 1 Capsule by mouth daily first thing in the morning. (at least 30 min prior to breakfast or other meds) Active 27-0.8 MG Oral Tablet Take 1 Tablet by mouth daily at noon. Active documented as of this encounter (statuses as of 07/01/2024) Active Problems Problem Noted Date Diagnosed Date [...] months. Encouraged. Office phone number given for [facility] 05/27/2024 Dot Flores RN 05/27/2024 Smoking/tobacco abuse Smoking Education- was vaping prior to . Quit with 05/27/2024 Dot Flores RN 05/27/24 nutrition Attending [facility] - plans to breastfeed has pump [...] affecting 12/20/2023 Overview (05/27/2024): Sees endocrine [place] [facility] [place]) TSH 0.35 on 11/23/23 TSH Results: Lab Results Component Value Date/Time TSH - [facility] 1.00 05/06/2024 12:24 PM Family history of vesicoureteral reflux 12/20/19 Overview (12/20/2023): Pt had at , surgically repaired Hyperlipidemia 12/19/2023 Hypothyroidism 12/19/2023 Insulin resistance 12/19/2023 Obesity 12/19/2023 Estimated Date of Delivery Comme nts Yes 07/22/2024 Based on Ultraso und documented as of this encounter (statuses as of 07/01/2024) Immunizations Name Administration Dates Next Due RSV [...] money to get more. Never true 11/22/2023 [place] Depression Scale Answer Date Recorded [place] Depression Scale Total 7 05/27/2024 The thought [...] 07/05/2024 9:15 AM EST Office Visit Gynecology/Obstetrics [place] [address] [place] [address] Art Acevedo MD [address] [place] [address] Health Maintenance Due Date Last Done Comments [...]
[2024-07-23 09:49] LABS: Hematocrit (blood only) 38.4 % (37.0-47.0); Hemoglobin 13.2 g/dl (12.0-16.0); Mean Corpuscular Hemoglobin 28.9 pg (25.0-34.0); Mean Corpuscular Hgb Conc 34.4 g/dL (32.0-36.0); Mean Corpuscular Volume 84.2 fL (80.0-100.0); Platelet Count 327 K/uL (130-400); RDW Coefficient of Variation 12.9 % (11.5-14.5); Red Blood Count 4.56 M/uL (4.20-5.40); White Blood Count 13.78 K/ul (4.8-10.8)
[2024-07-23 10:01] LABS: Albumin Level 3.3 gm/dl (3.4-5.0); Bilirubin,Total 0.3 mg/dl (0.2-1.0); Calcium 9.1 mg/dl (8.6-10.3); Creatinine Clr Calc Pharmacy 129.2 ml/min; Potassium 4.7 mmol/L (3.5-5.1); Total Protein 6.1 gm/dl (6.0-8.3)
[2024-07-23] MEDS: DINOPROSTONE 10 MG INSERT PV ONE (10:07)
[2024-07-23] MEDS: SODIUM CHLORIDE 0.9% 1000 ML BAG IV STA (10:10)
[2024-07-23] MEDS ORDERED: SODIUM CHLORIDE 0.9% 50 ML BAG IV STA ×2 (10:17→19:11)
[2024-07-23 10:42] LABS: Creatinine Urine Random 66.1 mg/dl; Protein Creatinine Ratio Urine 3.7 (0-0.2); Total Protein Urine Random 241.6 mg/dl (0-11.9)
[2024-07-23] MEDS ORDERED: LABETALOL HCL 200 MG TAB PO SCH (11:45)
[2024-07-23] MEDS ORDERED: LACTATED RINGER S IV ONE (11:54)
[2024-07-23] MEDS ORDERED: [UNRECOGNIZED DRUG - OTHER] IV ONE (11:54)
[2024-07-23] MEDS: LABETALOL HCL IV 5 MG/ML 20ML IV ONE ×3 (12:22→17:00)
[2024-07-23] MEDS: ACETAMINOPHEN 325 MG TAB PO PRN (13:27)
[2024-07-23] MEDS: diphenhydrAMINE Capsule 25 MG CAP PO ONE (13:27)
[2024-07-23] MEDS ORDERED: NALBUPHINE HCL IV PRN ×2 (14:31→14:37)
[2024-07-23] MEDS ORDERED: [UNRECOGNIZED DRUG - OTHER] IV SCH (16:45)
[2024-07-23] MEDS ORDERED: LACTATED RINGER S IV SCH (16:45)
--- NOTE | 2024-07-23 16:48 | Obstetrical Progress Note ---
Date of Service July 23, 2024 Assessment & Plan (1) Pre-eclampsia affecting , antepartum: Present on Admission?: Yes Plan Started mgso4 with 4 gm bolus and then 2 gm/hr labetalol 20 mg given followed by 40 mg IV Admission and Anticipated Discharge Date Admission Date: July 23, 2024 Subjective pt is asymptomatic, denies head aches, blurry vision, epigastric pain etc. Blood pressures: 160-180/80/100 Review of Systems Review of Systems: All systems reviewed & are unremarkable except as noted in HPI & below Constitutional: as per Subjective / HPI Results & Data Vital Signs (Past 12 Hours) Vital Signs Temp Pulse Resp BP Pulse Ox 07/23/24 16:36 68 07/23/24 16:36 192/88 H 07/23/24 16:28 58 L 07/23/24 16:28 196/95 H 07/23/24 16:22 69 07/23/24 16:22 194/104 H 07/23/24 16:02 75 07/23/24 16:02 155/83 H 07/23/24 15:58 78 07/23/24 15:58 222/113 H 07/23/24 15:48 75 07/23/24 15:48 197/98 H 07/23/24 15:45 90 07/23/24 15:45 170/103 H 07/23/24 15:43 99 07/23/24 15:43 56 L 07/23/24 15:38 98 07/23/24 15:38 69 07/23/24 15:33 98 07/23/24 15:33 67 07/23/24 15:28 97 07/23/24 15:28 63 07/23/24 15:28 179/91 H 07/23/24 15:23 97 07/23/24 15:23 67 07/23/24 15:18 97 07/23/24 15:18 54 L 07/23/24 15:13 99 07/23/24 15:13 69 07/23/24 15:13 176/94 H 07/23/24 15:08 98 07/23/24 15:08 57 L 07/23/24 15:03 97 07/23/24 15:03 61 07/23/24 14:58 99 07/23/24 14:58 82 07/23/24 14:57 78 07/23/24 14:57 163/92 H 07/23/24 14:53 99 07/23/24 14:53 59 L 07/23/24 14:48 98 07/23/24 14:48 56 L 07/23/24 14:43 100 07/23/24 14:43 87 07/23/24 14:42 53 L 07/23/24 14:42 153/86 H 07/23/24 14:38 99 07/23/24 14:38 82 07/23/24 14:33 98 07/23/24 14:33 73 07/23/24 14:28 99 07/23/24 14:28 87 07/23/24 14:27 60 07/23/24 14:27 148/82 H 07/23/24 14:23 97 07/23/24 14:23 82 07/23/24 14:18 97 07/23/24 14:18 81 07/23/24 14:13 99 07/23/24 14:13 81 07/23/24 14:12 61 07/23/24 14:12 143/77 H 07/23/24 14:08 96 07/23/24 14:08 58 L 07/23/24 14:03 97 07/23/24 14:03 62 07/23/24 13:58 97 07/23/24 13:58 70 07/23/24 13:57 71 07/23/24 13:57 165/82 H 07/23/24 13:53 98 07/23/24 13:53 63 07/23/24 13:48 99 07/23/24 13:48 79 07/23/24 13:43 100 07/23/24 13:43 93 H 07/23/24 13:42 79 07/23/24 13:42 175/99 H 07/23/24 13:38 99 07/23/24 13:38 89 07/23/24 13:33 98 07/23/24 13:33 71 07/23/24 13:28 99 07/23/24 13:28 72 07/23/24 13:23 99 07/23/24 13:23 74 07/23/24 13:21 90 07/23/24 13:21 172/91 H 07/23/24 13:18 99 07/23/24 13:18 81 07/23/24 13:16 86 07/23/24 13:16 162/83 H 07/23/24 13:13 99 07/23/24 13:13 87 07/23/24 13:11 77 07/23/24 13:11 156/81 H 07/23/24 13:08 98 07/23/24 13:08 85 07/23/24 13:06 62 07/23/24 13:06 162/85 H 07/23/24 13:03 98 07/23/24 13:03 76 07/23/24 13:01 76 07/23/24 13:01 165/84 H 07/23/24 12:58 97 07/23/24 12:58 85 07/23/24 12:56 75 07/23/24 12:56 179/96 H 07/23/24 12:53 98 07/23/24 12:53 79 07/23/24 12:53 71 07/23/24 12:53 167/93 H 07/23/24 12:48 98 07/23/24 12:48 67 07/23/24 12:46 76 07/23/24 12:46 171/90 H 07/23/24 12:43 64 179/89 H 07/23/24 12:43 98 07/23/24 12:43 82 07/23/24 12:43 210/98 H 07/23/24 12:38 97 07/23/24 12:38 64 07/23/24 12:37 65 07/23/24 12:37 179/89 H 07/23/24 12:33 97 07/23/24 12:33 64 07/23/24 12:32 68 07/23/24 12:32 185/90 H 07/23/24 12:26 64 07/23/24 12:26 156/85 H 07/23/24 12:23 65 07/23/24 12:23 175/93 H 07/23/24 12:22 60 175/93 H 07/23/24 12:21 60 07/23/24 12:21 171/93 H 07/23/24 12:15 61 07/23/24 12:15 184/103 H 07/23/24 11:37 62 07/23/24 11:37 179/89 H 07/23/24 11:16 62 07/23/24 11:16 190/91 H 07/23/24 10:55 57 L 07/23/24 10:55 179/86 H 07/23/24 10:51 74 07/23/24 10:51 188/107 H 07/23/24 10:40 58 L 07/23/24 10:40 169/95 H 07/23/24 10:38 58 L 07/23/24 10:38 169/96 H 07/23/24 10:06 63 07/23/24 10:06 180/93 H 07/23/24 09:42 18 07/23/24 09:42 37.2 C 18 07/23/24 09:10 67 07/23/24 09:10 177/100 H 07/23/24 08:55 59 L 07/23/24 08:55 169/106 H 07/23/24 08:37 61 07/23/24 08:37 171/92 H 07/23/24 08:30 37.2 C 18 07/23/24 08:20 63 160/103 H 07/23/24 08:18 60 152/100 H
[2024-07-23] MEDS: MAG SULFATE 4GM BOLUS FROM BAG IV ONE (16:55)
[2024-07-23] MEDS ORDERED: LABETALOL HCL IV 5 MG/ML 20ML IV ONE (17:00)
[2024-07-23] MEDS: BUTORPHANOL TARTRATE 1 MG/ML VIAL IV PRN (17:04)
[2024-07-23] MEDS: MAGNESIUM SULFATE / WTR 40 GM/1,000 ML BAG IV SCH (17:15)
[2024-07-23] MEDS: hydrALAZINE HCL 20 MG/ML VIAL IV PRN (17:55)
[2024-07-23] MEDS: MAGNESIUM SULFATE 40GM / WTR 1,000 ML BAG IV ONE (18:02)
[2024-07-23] MEDS: SODIUM CHLORIDE 0.9% 1,000 ML IV SCH (19:15)
[2024-07-23] MEDS: LABETALOL HCL IV 5 MG/ML 20ML IV STA (21:40)
[2024-07-24] MEDS: miSOPROStoL 50 MCG TAB PO ONE (05:25)
[2024-07-24] MEDS: LEVOTHYROXINE SODIUM 125 MCG TABLET PO SCH (06:13)
[2024-07-24] MEDS: LABETALOL HCL 100 MG TAB PO SCH ×2 (08:30→09:45)
--- NOTE | 2024-07-24 09:05 | Obstetrical Progress Note ---
Date of Service July 24, 2024 Assessment & Plan Admission and Anticipated Discharge Date Admission Date: July 23, 2024 Subjective patient is seen and examined. I got the signout from Dr. Duggan who admitted her yesterday for uterine contractions, elevated blood pressures with proteinuria meeting criteria for preeclampsia. She was started on vaginal Cervidil which was removed later in the afternoon due to hyper stimulation. She was then given 1 dose of p.o. Cytotec for induction of labor. Patient has headache, 3 out of 10 for which she was given p.o.Tylenol but she vomited that out. DELAROSA started yesterday but was relieved with PO Tylenol until this morning. No change in vision/ epigastric or RUQ pain. Patient feels irregular contractions not very painful, denies leakage of fluid or vaginal bleeding. She reports good movements. Her has been uncomplicated gated until yesterday when she came in and started having elevated blood pressures. She is on IV magnesium for seizure prophylaxis. heart rate had been with minimal variability which could be from IV magnesium and IV stadol. She has received IV labetalol twice yesterday which controlled her blood pressu res but BP's started to increase this morning. I started her on p.o. labetalol. VE: 1 cm. 50%/ -3, posterior, scal stimulation increased varibaility, FHR 130- 140's, no decels P AP: Discussed the findings with the patient, IUP at 40.2 wks with preeclampsia with severe features Recommended to start IV Oxytocin and Diehl baloon for mechanical dilatation Repeat Labs Epidural for pain Patient understands all and agrees [facility] plan. Results & Data Vital Signs (Past 12 Hours) Vital Signs Temp Pulse Resp BP Pulse Ox 07/24/24 08:53 84 97 07/24/24 08:49 80 154/93 H 07/24/24 08:48 79 97 07/24/24 08:43 74 97 07/24/24 08:38 71 95 07/24/24 08:35 69 154/91 H 07/24/24 08:33 65 97 07/24/24 08:28 73 97 07/24/24 08:23 70 94 07/24/24 08:20 76 152/83 H 07/24/24 08:18 75 97 07/24/24 08:13 71 97 07/24/24 08:08 79 96 07/24/24 08:05 67 161/88 H 07/24/24 08:03 84 99 07/24/24 07:58 77 94 07/24/24 07:53 67 96 07/24/24 07:50 61 137/76 07/24/24 07:48 76 98 07/24/24 07:43 69 99 07/24/24 07:38 74 99 07/24/24 07:33 75 100 07/24/24 07:28 82 100 07/24/24 07:23 76 100 07/24/24 07:20 72 157/87 H 07/24/24 07:18 70 100 07/24/24 07:15 20 07/24/24 07:13 76 99 07/24/24 07:08 58 L 99 07/24/24 07:04 64 126/70 07/24/24 07:03 61 99 07/24/24 06:58 60 99 07/24/24 06:53 58 L 99 07/24/24 06:49 63 128/70 07/24/24 06:48 61 99 07/24/24 06:43 60 99 07/24/24 06:38 61 99 07/24/24 06:34 63 139/77 07/24/24 06:33 65 99 07/24/24 06:29 16 07/24/24 06:28 62 99 07/24/24 06:23 62 99 07/24/24 06:20 63 136/79 07/24/24 06:18 64 98 07/24/24 06:13 74 100 07/24/24 06:08 75 100 07/24/24 06:04 80 156/94 H 07/24/24 06:03 84 99 07/24/24 05:58 97 07/24/24 05:58 80 07/24/24 05:58 85 156/97 H 07/24/24 05:53 110 H 98 07/24/24 05:48 83 99 07/24/24 05:43 61 99 07/24/24 05:38 59 L 99 07/24/24 05:36 61 141/85 H 07/24/24 05:33 83 100 07/24/24 05:30 16 07/24/24 05:28 66 100 07/24/24 05:23 65 99 07/24/24 05:19 62 126/75 07/24/24 05:18 71 100 07/24/24 05:13 58 L 93 07/24/24 05:09 59 L 94 07/24/24 05:08 56 L 94 07/24/24 05:04 58 L 121/73 07/24/24 05:03 56 L 94 07/24/24 05:01 60 94 07/24/24 04:58 58 L 95 07/24/24 04:53 58 L 95 07/24/24 04:50 56 L 130/74 07/24/24 04:48 57 L 96 07/24/24 04:43 62 96 07/24/24 04:38 73 98 07/24/24 04:34 86 145/86 H 07/24/24 04:33 75 97 07/24/24 04:30 16 07/24/24 04:28 71 98 07/24/24 04:23 81 99 07/24/24 04:18 80 98 07/24/24 04:17 82 92 07/24/24 04:16 72 152/87 H 07/24/24 04:13 36.5 C 93 H 16 100 07/24/24 04:10 62 161/88 H 07/24/24 04:08 71 100 07/24/24 04:03 69 98 07/24/24 03:58 64 98 07/24/24 03:53 56 L 145/76 H 99 07/24/24 03:48 66 98 07/24/24 03:43 61 98 07/24/24 03:38 64 98 07/24/24 03:37 65 128/69 07/24/24 03:33 62 99 07/24/24 03:30 16 07/24/24 03:28 68 99 07/24/24 03:23 63 99 07/24/24 03:22 81 124/64 07/24/24 03:18 62 99 07/24/24 03:13 64 99 07/24/24 03:08 61 99 07/24/24 03:07 61 137/69 07/24/24 03:03 61 99 07/24/24 02:58 63 98 07/24/24 02:53 63 99 07/24/24 02:52 75 119/61 07/24/24 02:48 65 98 07/24/24 02:43 64 98 07/24/24 02:38 97 07/24/24 02:38 64 07/24/24 02:38 64 134/70 07/24/24 02:33 64 97 07/24/24 02:30 16 07/24/24 02:28 64 97 07/24/24 02:23 62 97 07/24/24 02:22 58 L 134/75 07/24/24 02:18 90 100 07/24/24 02:13 64 99 07/24/24 02:09 63 136/78 07/24/24 02:08 63 99 07/24/24 02:03 81 99 07/24/24 01:58 65 98 07/24/24 01:53 98 07/24/24 01:53 68 07/24/24 01:53 67 134/68 07/24/24 01:48 64 99 07/24/24 01:43 84 98 07/24/24 01:38 63 98 07/24/24 01:37 80 135/67 07/24/24 01:33 63 98 07/24/24 01:30 16 07/24/24 01:28 64 98 07/24/24 01:23 67 98 07/24/24 01:22 67 132/65 07/24/24 01:18 66 98 07/24/24 01:13 64 98 07/24/24 01:08 67 98 07/24/24 01:07 68 131/66 07/24/24 01:03 69 98 07/24/24 00:58 64 98 07/24/24 00:53 98 07/24/24 00:53 67 07/24/24 00:53 69 130/69 07/24/24 00:48 67 98 07/24/24 00:43 64 98 07/24/24 00:38 98 07/24/24 00:38 67 07/24/24 00:38 66 130/67 07/24/24 00:33 66 98 07/24/24 00:30 16 07/24/24 00:28 63 98 07/24/24 00:23 97 07/24/24 00:23 64 07/24/24 00:23 65 131/67 07/24/24 00:18 64 97 07/24/24 00:13 64 98 07/24/24 00:08 65 97 07/24/24 00:07 65 128/65 07/24/24 00:03 66 97 07/23/24 23:58 97 07/23/24 23:58 67 07/23/24 23:53 97 07/23/24 23:53 64 07/23/24 23:52 63 07/23/24 23:52 127/67 07/23/24 23:48 97 07/23/24 23:48 65 07/23/24 23:43 97 07/23/24 23:43 65 07/23/24 23:38 98 07/23/24 23:38 69 07/23/24 23:38 122/71 07/23/24 23:33 97 07/23/24 23:33 66 07/23/24 23:28 97 07/23/24 23:28 63 07/23/24 23:23 98 07/23/24 23:23 67 07/23/24 23:23 64 07/23/24 23:23 144/72 H 07/23/24 23:20 16 07/23/24 23:20 16 07/23/24 23:20 36.6 C 16 07/23/24 23:18 100 07/23/24 23:18 79 07/23/24 23:13 98 07/23/24 23:13 82 07/23/24 23:08 100 07/23/24 23:08 88 07/23/24 23:07 71 07/23/24 23:07 159/86 H 07/23/24 23:03 98 07/23/24 23:03 83 07/23/24 22:58 98 07/23/24 22:58 82 07/23/24 22:54 75 07/23/24 22:54 159/86 H 07/23/24 22:53 100 07/23/24 22:53 74 07/23/24 22:47 98 07/23/24 22:47 69 07/23/24 22:42 99 07/23/24 22:42 74 07/23/24 22:39 69 07/23/24 22:39 143/91 H 07/23/24 22:37 99 07/23/24 22:37 65 07/23/24 22:32 99 07/23/24 22:32 69 07/23/24 22:27 16 07/23/24 22:27 100 07/23/24 22:27 77 07/23/24 22:22 97 07/23/24 22:22 77 07/23/24 22:21 72 07/23/24 22:21 155/87 H 07/23/24 22:17 96 07/23/24 22:17 73 07/23/24 22:15 75 07/23/24 22:15 147/84 H 07/23/24 22:12 98 07/23/24 22:12 76 07/23/24 22:11 91 07/23/24 22:11 88 07/23/24 22:10 78 07/23/24 22:10 144/79 H 07/23/24 22:07 98 07/23/24 22:07 83 07/23/24 22:05 77 07/23/24 22:05 138/73 07/23/24 22:02 97 07/23/24 22:02 78 07/23/24 22:01 85 07/23/24 22:01 151/82 H 07/23/24 22:00 18 07/23/24 22:00 18 07/23/24 21:57 99 07/23/24 21:57 79 07/23/24 21:55 78 143/80 H 07/23/24 21:55 78 07/23/24 21:55 143/80 H 07/23/24 21:52 100 07/23/24 21:52 64 07/23/24 21:49 76 07/23/24 21:49 143/73 H 07/23/24 21:47 100 07/23/24 21:47 80 07/23/24 21:42 99 07/23/24 21:42 82 07/23/24 21:40 16 07/23/24 21:40 77 164/80 H 07/23/24 21:37 100 07/23/24 21:37 78 07/23/24 21:35 86 07/23/24 21:35 151/73 H 07/23/24 21:32 100 07/23/24 21:32 65 07/23/24 21:27 100 07/23/24 21:27 68 07/23/24 21:22 100 07/23/24 21:22 65 07/23/24 21:22 164/80 H 07/23/24 21:17 100 07/23/24 21:17 66 07/23/24 21:12 100 07/23/24 21:12 70 07/23/24 21:07 100 07/23/24 21:07 67 07/23/24 21:06 68 07/23/24 21:06 156/81 H 07/23/24 21:02 99 07/23/24 21:02 65 07/23/24 21:00 16 07/23/24 21:00 16 07/23/24 20:57 100 07/23/24 20:57 72
[2024-07-24 09:17] LABS: Basophils # (auto) 0.03 K/uL (0.00-0.20); Basophils % (auto) 0.2 %; Eosinophils # (auto) 0.04 K/uL (0.00-0.50); Eosinophils % (auto) 0.3 %; Immature Granulocytes # (auto) 0.11 K/uL (0.01-0.20); Immature Granulocytes % (auto) 0.8 %; Lymphocytes # (auto) 1.91 K/uL (1.20-3.40); Lymphocytes % (auto) 13.1 %; Mean Corpuscular Hemoglobin 28.8 pg (25.0-34.0); Mean Corpuscular Hgb Conc 34.2 g/dL (32.0-36.0); Mean Corpuscular Volume 84.3 fL (80.0-100.0); Mean Platelet Volume 9.8 fL (9.4-12.4); Monocytes # (auto) 0.53 K/uL (0.11-0.59); Monocytes % (auto) 3.6 %; Neutrophils # (auto) 11.96 K/uL (1.40-6.50); Platelet Count 304 K/uL (130-400); RDW Coefficient of Variation 13.2 % (11.5-14.5); RDW Standard Deviation 39.9 fL (36.4-46.3); Red Blood Count 4.51 M/uL (4.20-5.40); White Blood Count 14.58 K/ul (4.8-10.8)
[2024-07-24 09:33] LABS: Albumin Globulin Ratio 1.1 (0.9-2); Albumin Level 3.2 gm/dl (3.4-5.0); BUN Creatinine Ratio 10.8 (10-20); Bilirubin,Total 0.3 mg/dl (0.2-1.0); Calcium 7.6 mg/dl (8.6-10.3); Creatinine Clr Calc Pharmacy 159.1 ml/min; Globulin 2.9 gm/dl (2.5-4.0); Potassium 4.3 mmol/L (3.5-5.1); Total Protein 6.1 gm/dl (6.0-8.3)
--- NOTE | 2024-07-24 09:33 | Obstetrical Progress Note ---
Date of Service July 24, 2024 Assessment & Plan Admission and Anticipated Discharge Date Admission Date: July 23, 2024 Subjective Patient is placed in dorsal lithotomy position, speculum was placed in the vagina, cervix is visualized, cleaned with Betadine solution, Diehl catheter was introduced from cervical os and inflated with 35 mL of sterile water. Speculum was removed and the catheter was attached to the medial thigh with tension. Patient tolerated procedure well. heart rate is category 1. Plan to start oxytocin per protocol and continue to monitor closely. Results & Data Vital Signs (Past 12 Hours) Vital Signs Temp Pulse Resp BP Pulse Ox 07/24/24 09:28 91 H 98 07/24/24 09:23 82 96 07/24/24 09:19 79 152/91 H 07/24/24 09:18 87 98 07/24/24 09:13 81 96 07/24/24 09:08 92 H 97 07/24/24 09:05 88 149/89 H 07/24/24 09:03 75 97 07/24/24 08:58 107 H 96 07/24/24 08:53 84 97 07/24/24 08:49 80 154/93 H 07/24/24 08:48 79 97 07/24/24 08:43 74 97 07/24/24 08:38 71 95 07/24/24 08:35 69 154/91 H 07/24/24 08:33 65 97 07/24/24 08:28 73 97 07/24/24 08:23 70 94 07/24/24 08:20 76 152/83 H 07/24/24 08:18 75 97 07/24/24 08:13 71 97 07/24/24 08:08 79 96 07/24/24 08:05 67 161/88 H 07/24/24 08:03 84 99 07/24/24 07:58 77 94 07/24/24 07:53 67 96 07/24/24 07:50 61 137/76 07/24/24 07:48 76 98 07/24/24 07:43 69 99 07/24/24 07:38 74 99 07/24/24 07:33 75 100 07/24/24 07:28 82 100 07/24/24 07:23 76 100 07/24/24 07:20 72 157/87 H 07/24/24 07:18 70 100 07/24/24 07:15 20 07/24/24 07:13 76 99 07/24/24 07:08 58 L 99 07/24/24 07:04 64 126/70 07/24/24 07:03 61 99 07/24/24 06:58 60 99 07/24/24 06:53 58 L 99 07/24/24 06:49 63 128/70 07/24/24 06:48 61 99 07/24/24 06:43 60 99 07/24/24 06:38 61 99 07/24/24 06:34 63 139/77 07/24/24 06:33 65 99 07/24/24 06:29 16 07/24/24 06:28 62 99 07/24/24 06:23 62 99 07/24/24 06:20 63 136/79 07/24/24 06:18 64 98 07/24/24 06:13 74 100 07/24/24 06:08 75 100 07/24/24 06:04 80 156/94 H 07/24/24 06:03 84 99 07/24/24 05:58 97 07/24/24 05:58 80 07/24/24 05:58 85 156/97 H 07/24/24 05:53 110 H 98 07/24/24 05:48 83 99 07/24/24 05:43 61 99 07/24/24 05:38 59 L 99 07/24/24 05:36 61 141/85 H 07/24/24 05:33 83 100 07/24/24 05:30 16 07/24/24 05:28 66 100 07/24/24 05:23 65 99 07/24/24 05:19 62 126/75 07/24/24 05:18 71 100 07/24/24 05:13 58 L 93 07/24/24 05:09 59 L 94 07/24/24 05:08 56 L 94 07/24/24 05:04 58 L 121/73 07/24/24 05:03 56 L 94 07/24/24 05:01 60 94 07/24/24 04:58 58 L 95 07/24/24 04:53 58 L 95 07/24/24 04:50 56 L 130/74 07/24/24 04:48 57 L 96 07/24/24 04:43 62 96 07/24/24 04:38 73 98 07/24/24 04:34 86 145/86 H 07/24/24 04:33 75 97 07/24/24 04:30 16 07/24/24 04:28 71 98 07/24/24 04:23 81 99 07/24/24 04:18 80 98 07/24/24 04:17 82 92 07/24/24 04:16 72 152/87 H 07/24/24 04:13 36.5 C 93 H 16 100 07/24/24 04:10 62 161/88 H 07/24/24 04:08 71 100 07/24/24 04:03 69 98 07/24/24 03:58 64 98 07/24/24 03:53 56 L 145/76 H 99 07/24/24 03:48 66 98 07/24/24 03:43 61 98 07/24/24 03:38 64 98 07/24/24 03:37 65 128/69 07/24/24 03:33 62 99 07/24/24 03:30 16 07/24/24 03:28 68 99 07/24/24 03:23 63 99 07/24/24 03:22 81 124/64 07/24/24 03:18 62 99 07/24/24 03:13 64 99 07/24/24 03:08 61 99 07/24/24 03:07 61 137/69 07/24/24 03:03 61 99 07/24/24 02:58 63 98 07/24/24 02:53 63 99 07/24/24 02:52 75 119/61 07/24/24 02:48 65 98 07/24/24 02:43 64 98 07/24/24 02:38 97 07/24/24 02:38 64 07/24/24 02:38 64 134/70 07/24/24 02:33 64 97 07/24/24 02:30 16 07/24/24 02:28 64 97 07/24/24 02:23 62 97 07/24/24 02:22 58 L 134/75 07/24/24 02:18 90 100 07/24/24 02:13 64 99 07/24/24 02:09 63 136/78 07/24/24 02:08 63 99 07/24/24 02:03 81 99 07/24/24 01:58 65 98 07/24/24 01:53 98 07/24/24 01:53 68 07/24/24 01:53 67 134/68 07/24/24 01:48 64 99 07/24/24 01:43 84 98 07/24/24 01:38 63 98 07/24/24 01:37 80 135/67 07/24/24 01:33 63 98 07/24/24 01:30 16 07/24/24 01:28 64 98 07/24/24 01:23 67 98 07/24/24 01:22 67 132/65 07/24/24 01:18 66 98 07/24/24 01:13 64 98 07/24/24 01:08 67 98 07/24/24 01:07 68 131/66 07/24/24 01:03 69 98 07/24/24 00:58 64 98 07/24/24 00:53 98 07/24/24 00:53 67 07/24/24 00:53 69 130/69 07/24/24 00:48 67 98 07/24/24 00:43 64 98 07/24/24 00:38 98 07/24/24 00:38 67 07/24/24 00:38 66 130/67 07/24/24 00:33 66 98 07/24/24 00:30 16 07/24/24 00:28 63 98 07/24/24 00:23 97 07/24/24 00:23 64 07/24/24 00:23 65 131/67 07/24/24 00:18 64 97 07/24/24 00:13 64 98 07/24/24 00:08 65 97 07/24/24 00:07 65 128/65 07/24/24 00:03 66 97 07/23/24 23:58 97 07/23/24 23:58 67 07/23/24 23:53 97 07/23/24 23:53 64 07/23/24 23:52 63 07/23/24 23:52 127/67 07/23/24 23:48 97 07/23/24 23:48 65 07/23/24 23:43 97 07/23/24 23:43 65 07/23/24 23:38 98 07/23/24 23:38 69 07/23/24 23:38 122/71 07/23/24 23:33 97 07/23/24 23:33 66 07/23/24 23:28 97 07/23/24 23:28 63 07/23/24 23:23 98 07/23/24 23:23 67 07/23/24 23:23 64 07/23/24 23:23 144/72 H 07/23/24 23:20 16 07/23/24 23:20 16 07/23/24 23:20 36.6 C 16 07/23/24 23:18 100 07/23/24 23:18 79 07/23/24 23:13 98 07/23/24 23:13 82 07/23/24 23:08 100 07/23/24 23:08 88 07/23/24 23:07 71 07/23/24 23:07 159/86 H 07/23/24 23:03 98 07/23/24 23:03 83 07/23/24 22:58 98 07/23/24 22:58 82 07/23/24 22:54 75 07/23/24 22:54 159/86 H 07/23/24 22:53 100 07/23/24 22:53 74 07/23/24 22:47 98 07/23/24 22:47 69 07/23/24 22:42 99 07/23/24 22:42 74 07/23/24 22:39 69 07/23/24 22:39 143/91 H 07/23/24 22:37 99 07/23/24 22:37 65 07/23/24 22:32 99 07/23/24 22:32 69 07/23/24 22:27 16 07/23/24 22:27 100 07/23/24 22:27 77 07/23/24 22:22 97 07/23/24 22:22 77 07/23/24 22:21 72 07/23/24 22:21 155/87 H 07/23/24 22:17 96 07/23/24 22:17 73 07/23/24 22:15 75 07/23/24 22:15 147/84 H 07/23/24 22:12 98 07/23/24 22:12 76 07/23/24 22:11 91 07/23/24 22:11 88 07/23/24 22:10 78 07/23/24 22:10 144/79 H 07/23/24 22:07 98 07/23/24 22:07 83 07/23/24 22:05 77 07/23/24 22:05 138/73 07/23/24 22:02 97 07/23/24 22:02 78 07/23/24 22:01 85 07/23/24 22:01 151/82 H 07/23/24 22:00 18 07/23/24 22:00 18 07/23/24 21:57 99 07/23/24 21:57 79 07/23/24 21:55 78 143/80 H 07/23/24 21:55 78 07/23/24 21:55 143/80 H 07/23/24 21:52 100 07/23/24 21:52 64 07/23/24 21:49 76 07/23/24 21:49 143/73 H 07/23/24 21:47 100 07/23/24 21:47 80 07/23/24 21:42 99 07/23/24 21:42 82 07/23/24 21:40 16 07/23/24 21:40 77 164/80 H 07/23/24 21:37 100 07/23/24 21:37 78 07/23/24 21:35 86 07/23/24 21:35 151/73 H
[2024-07-24] MEDS: ONDANSETRON INJ 2 MG/ML 2 ML VIAL IV PRN (09:48)
[2024-07-24 09:50] LABS: INR 0.9 (0.9-1.1); Partial Thromboplastin Ratio 1.1; Partial Thromboplastin Time 29 Seconds (21-31); Prothrombin Time 9.4 Seconds (9.0-12.0)
[2024-07-24 10:00] LABS: Magnesium Therapeutic L&D Only 5.7 mg/dL (4.0-8.0)
[2024-07-24] MEDS ORDERED: fentANYL 2 MCG/ML BUPIVacaine 0.125%-NSS 100ML BAG EPI PRN (10:00)
[2024-07-24] MEDS ORDERED: NALBUPHINE HCL INJ 10 MG/ML AMP IV PRN ×2 (10:00→12:34)
[2024-07-24] MEDS ORDERED: NALOXONE HCL 0.4 MG/1 ML VIAL/CARP IV PRN ×2 (10:00→12:34)
[2024-07-24] MEDS ORDERED: SODIUM CHLORIDE 0.9% PF INJ 10 ML VIAL EPI PRN (10:00)
[2024-07-24] MEDS ORDERED: diphenhydrAMINE 50 MG/ML VIAL IV PRN ×2 (10:00→12:34)
[2024-07-24] MEDS ORDERED: ePHEDrine sulfate 50 MG/ML AMP IV PRN ×2 (10:00→12:34)
[2024-07-24] MEDS ORDERED: NALOXONE HCL 1 MG in SODIUM CHLORIDE 0.9% 1,000 ML IV PRN ×2 (10:00→12:34)
[2024-07-24] MEDS ORDERED: fentaNYL citrate PF 100 MCG/2 ML VIAL EPI PRN (10:00)
[2024-07-24] MEDS ORDERED: ONDANSETRON INJ 2 MG/ML 2 ML VIAL IV PRN ×2 (10:00→12:34)
[2024-07-24] MEDS ORDERED: LIDOCAINE 2% MPF LOCAL 5 ML VIAL EPI PRN (10:00)
[2024-07-24] MEDS ORDERED: BUPIVACAINE 0.25% PF 30 ML VIAL EPI PRN (10:00)
[2024-07-24] MEDS ORDERED: ROPIVACAINE 0.5% PF 5 MG/ML 20 ML VIAL EPI PRN (10:00)
--- NOTE | 2024-07-24 10:00 | Anesthesiology Consultation ---
Date of Service July 24, 2024 Assessment & Plan ASA ASA3 Proposed Anesthesia Anesthesia Type: Labor Epidural Risk / Benefits Reviewed With: PT / POA / Parent / Guardian, Accepts Plan and Informed Consent Obtained History Height/Weight Height: 5 ft 4 in Weight: 115.212 kg Allergies Allergy/AdvReac Type Severity Reaction Status Date / Time amoxicillin Allergy Rash Unverified 10/06/23 07:37 Medications Home Medications Medication Instructions Recorded Confirmed Last Taken levothyroxine 125 mcg tablet 125 mcg PO DAILY #90 tabs 06/20/24 07/23/24 07/02/24 1 tab PO DAILY 07/23/24 07/23/24 07/22/24 19:00 Active Medications Generic Name Dose Route Start Last Admin Trade Name Freq PRN Reason Stop Dose Admin Acetaminophen 650 mg 07/23/24 13:19 07/24/24 09:55 Acetaminophen 325 Mg Tab PO 08/22/24 13:18 650 mg Q4H PRN Administration Pain Butorphanol Tartrate 1 mg 07/23/24 16:53 07/23/24 23:16 Butorphanol Tartrate 1 Mg/Ml Vial IV 08/22/24 16:52 1 mg Q6H PRN Administration Pain Hydralazine HCl 5 mg 07/23/24 16:42 07/23/24 17:55 Hydralazine Hcl 20 Mg/Ml Vial IV 08/22/24 16:41 5 mg ONCE PRN Administration Hypertension Magnesium Sulfate 40 gm in 1,000 mls @ 50 mls/hr 07/23/24 16:45 07/24/24 11:23 Magnesium Sulfate / Wtr IV 08/22/24 16:44 50 mls/hr .Q20H SANDIP Administration Sodium Chloride 1,000 mls @ 75 mls/hr 07/23/24 19:15 07/24/24 07:10 Nss IV 08/22/24 19:14 75 mls/hr .[id number] SANDIP Infusion Oxytocin 30 units in 500 mls @ 4 mls/hr 07/24/24 08:51 07/24/24 11:15 Pitocin 30 Units/Nss IV 07/26/24 08:50 0.24 units/hr .Q24H PRN 4 mls/hr Labor Induction/Augmentation Titration Protocol 0.24 UNITS/HR Labetalol HCl 100 mg 07/24/24 09:45 07/24/24 09:45 Labetalol Hcl 100 Mg Tab PO 08/23/24 09:44 100 mg Q8 SANDIP Administration Levothyroxine Sodium 125 mcg 07/24/24 06:30 07/24/24 06:13 Levothyroxine Sodium 125 Mcg Tablet PO 08/23/24 06:29 Not Given DAILYBB SANDIP Ondansetron HCl 4 mg 07/24/24 09:21 07/24/24 09:48 Ondansetron Inj 2 Mg/Ml 2 Ml Vial IV 08/23/24 09:20 4 mg Q4H PRN Administration Nausea Past Medical History Medical History History of vesicoureteral reflux Repair 2004 Hypothyroidism Exercise / Class Metabolic Activity II 4-5 Yardwork/Stairs/Walk up hill Past Family History Family History Father Hypertension Dyslipidemia Grandmother (Maternal) Hypertension Dyslipidemia Hypothyroidism Past Surgical History Surgical History Ida teeth removed No pertinent past surgical history Past Anesthesia History No Hx of Anesthesia Complications and No Family Hx of Anesthesia Complications History of PONV No Hx of PONV and No Hx of Motion Sickness Social History Smoking Status: Former smoker Hx Alcohol Use: Yes Hx Substance Use: No substance use type: does not use Review of Systems denies fever/cough/ colds/ chest pain/ SOB/ NISHI denies NISHI Physical Exam Vital Signs Last Vital Signs Temp 36.6 C 07/24/24 11:00 Pulse 81 07/24/24 12:10 Resp 16 07/24/24 10:59 BP 128/70 07/24/24 12:10 Pulse Ox 96 07/24/24 12:10 O2 Del Method Room Air 07/23/24 19:20 ENMT Mouth: no TMJ abnormality and no dentition abnormality Thyromental Distance: > or= 3.5 Finger Breadths Mallampati Class: II Neck neck extension not limited Respiratory normal respiratory effort; no respiratory distress Auscultation: lungs clear to auscultation bilaterally Cardiovascular Rate/Rhythm: regular rate and regular rhythm Neurologic moves all extremities Psychiatric Orientation: alert and oriented x 3 Testing Laboratory Results 07/24/24 09:07/24/24 09:01 PT 9.4 Seconds (9.0-12.0) 07/24/24 09:01 INR 0.9 (0.9-1.1) 07/24/24 09: APTT 29 Seconds (21-31) 07/24/24 09:01 Blood Type B Positive 07/23/24: Antibody Screen NEGATIVE 07/23/24:
[2024-07-24] MEDS: fentANYL 2 MCG/ML BUPIVacaine 0.125%-NSS 100ML BAG ONE (10:34)
[2024-07-24] MEDS: BUPIVACAINE 0.25% PF 30 ML VIAL ONE (10:38)
[2024-07-24] MEDS: LIDOCAINE 2%/EPINEPHRINE 1:200,000 20 ML PF ONE (10:38)
[2024-07-24] MEDS: fentaNYL citrate PF 100 MCG/2 ML VIAL ONE (10:38)
[2024-07-24] MEDS: ePHEDrine sulfate 50 MG/ML AMP ONE (10:39)
[2024-07-24] MEDS: SODIUM CHLORIDE 0.9% PF INJ 10 ML VIAL ONE (10:39)
[2024-07-24] MEDS: OXYTOCIN 30 UNITS/NSS 30 UNITS/500 ML BAG IV PRN (10:45)
[2024-07-24] MEDS: SODIUM CHLORIDE 0.9% PF INJ 10 ML VIAL EPI STA (11:15)
[2024-07-24] MEDS: LIDOCAINE 2%/EPINEPHRINE 1:200,000 20 ML PF EPI STA (11:15)
[2024-07-24] MEDS: fentaNYL citrate PF 100 MCG/2 ML VIAL EPI STA (11:15)
[2024-07-24] MEDS: BUPIVACAINE 0.25% PF 30 ML VIAL EPI STA (11:15)
[2024-07-24] MEDS ORDERED: SODIUM CHLORIDE 0.9% 1,000 ML IV SCH ×3 (12:00→14:45)
[2024-07-24] MEDS ORDERED: LIDOCAINE 2%/EPINEPHRINE 1:200,000 20 ML PF ONE (12:02)
[2024-07-24] MEDS ORDERED: OXYTOCIN 10 UNITS/ML VIAL ONE (12:02)
[2024-07-24] MEDS ORDERED: MoRPHine SULFATE PF 1 MG/ML 10 ML AMP/VIAL ONE (12:03)
[2024-07-24] MEDS ORDERED: fentaNYL citrate PF 100 MCG/2 ML VIAL ONE (12:03)
[2024-07-24] MEDS ORDERED: PHENYLEPHRINE HCL 25 MG/250 ML NSS IV ONE (12:03)
--- NOTE | 2024-07-24 12:05 | Obstetrical Progress Note ---
Date of Service July 24, 2024 Assessment & Plan Admission and Anticipated Discharge Date Admission Date: July 23, 2024 Subjective Patient was painful and received epidural for pain and comfortable now Started on Oxytocin, was at 4 miu/min, started have FHR decelerations after each contractions, decreased variability, Discussed the findings, fetus not toleration labor/ contractions and remote form delivery, and recommended Caesarean section She understands the risks and benefits and signed an Informed consent. All questions were answered. Diehl balloon was in the vagina and removed, cervix is 3 to 4 cm, 50% head is - 3, ballotable. Results & Data Vital Signs (Past 12 Hours) Vital Signs Temp Pulse Resp BP Pulse Ox 07/24/24 11:55 69 120/70 96 07/24/24 11:50 71 95 07/24/24 11:45 68 94 07/24/24 11:40 94 07/24/24 11:40 59 L 07/24/24 11:40 67 121/69 07/24/24 11:35 71 95 07/24/24 11:30 56 L 93 07/24/24 11:25 65 114/65 94 07/24/24 11:20 79 95 07/24/24 11:15 65 92 07/24/24 11:10 63 93 07/24/24 11:07 64 91 07/24/24 11:06 65 114/60 07/24/24 11:05 66 92 07/24/24 11:01 75 111/59 L 07/24/24 11:00 36.6 C 72 95 07/24/24 10:59 16 07/24/24 10:59 16 07/24/24 10:56 71 116/64 07/24/24 10:55 74 96 07/24/24 10:51 74 112/65 07/24/24 10:50 72 94 07/24/24 10:46 75 115/65 07/24/24 10:44 18 07/24/24 10:44 18 07/24/24 10:43 73 96 07/24/24 10:41 75 120/71 07/24/24 10:39 18 07/24/24 10:39 18 07/24/24 10:38 77 95 07/24/24 10:36 75 117/74 07/24/24 10:34 72 18 131/84 07/24/24 10:33 76 96 07/24/24 10:31 69 129/83 07/24/24 10:28 82 96 07/24/24 10:26 78 139/86 07/24/24 10:23 91 H 96 07/24/24 10:22 80 90 07/24/24 10:21 77 165/92 H 07/24/24 10:18 85 98 07/24/24 10:16 77 161/93 H 07/24/24 10:13 97 H 96 07/24/24 10:11 79 156/88 H 07/24/24 10:08 75 95 07/24/24 10:06 80 167/94 H 07/24/24 10:03 78 96 07/24/24 10:01 77 157/90 H 07/24/24 09:58 93 H 99 07/24/24 09:56 82 152/84 H 07/24/24 09:53 83 96 07/24/24 09:50 83 173/95 H 07/24/24 09:48 82 96 07/24/24 09:45 85 172/88 H 07/24/24 09:43 91 H 98 07/24/24 09:42 104 H 183/96 H 07/24/24 09:38 100 H 98 07/24/24 09:34 82 153/88 H 07/24/24 09:33 79 97 07/24/24 09:28 91 H 98 07/24/24 09:23 82 96 07/24/24 09:19 79 152/91 H 07/24/24 09:18 87 98 07/24/24 09:13 81 96 07/24/24 09:08 92 H 97 07/24/24 09:05 88 149/89 H 07/24/24 09:03 75 97 07/24/24 08:58 107 H 96 07/24/24 08:53 84 97 07/24/24 08:49 80 154/93 H 07/24/24 08:48 79 97 07/24/24 08:43 74 97 07/24/24 08:38 71 95 07/24/24 08:35 69 154/91 H 07/24/24 08:33 65 97 07/24/24 08:28 73 97 07/24/24 08:23 70 94 07/24/24 08:20 76 152/83 H 07/24/24 08:18 75 97 07/24/24 08:13 71 97 07/24/24 08:08 79 96 07/24/24 08:05 67 161/88 H 07/24/24 08:03 84 99 07/24/24 07:58 77 94 07/24/24 07:53 67 96 07/24/24 07:50 61 137/76 07/24/24 07:48 76 98 07/24/24 07:43 69 99 07/24/24 07:38 74 99 07/24/24 07:33 75 100 07/24/24 07:28 82 100 07/24/24 07:23 76 100 07/24/24 07:20 72 157/87 H 07/24/24 07:18 70 100 07/24/24 07:15 20 07/24/24 07:15 20 07/24/24 07:15 36.7 C 20 07/24/24 07:13 76 99 07/24/24 07:08 58 L 99 07/24/24 07:04 64 126/70 07/24/24 07:03 61 99 07/24/24 06:58 60 99 07/24/24 06:53 58 L 99 07/24/24 06:49 63 128/70 07/24/24 06:48 61 99 07/24/24 06:43 60 99 07/24/24 06:38 61 99 07/24/24 06:34 63 139/77 07/24/24 06:33 65 99 07/24/24 06:29 16 07/24/24 06:28 62 99 07/24/24 06:23 62 99 07/24/24 06:20 63 136/79 07/24/24 06:18 64 98 07/24/24 06:13 74 100 07/24/24 06:08 75 100 07/24/24 06:04 80 156/94 H 07/24/24 06:03 84 99 07/24/24 05:58 97 07/24/24 05:58 80 07/24/24 05:58 85 156/97 H 07/24/24 05:53 110 H 98 07/24/24 05:48 83 99 07/24/24 05:43 61 99 07/24/24 05:38 59 L 99 07/24/24 05:36 61 141/85 H 07/24/24 05:33 83 100 07/24/24 05:30 16 07/24/24 05:28 66 100 07/24/24 05:23 65 99 07/24/24 05:19 62 126/75 07/24/24 05:18 71 100 07/24/24 05:13 58 L 93 07/24/24 05:09 59 L 94 07/24/24 05:08 56 L 94 07/24/24 05:04 58 L 121/73 07/24/24 05:03 56 L 94 07/24/24 05:01 60 94 07/24/24 04:58 58 L 95 07/24/24 04:53 58 L 95 07/24/24 04:50 56 L 130/74 07/24/24 04:48 57 L 96 07/24/24 04:43 62 96 07/24/24 04:38 73 98 07/24/24 04:34 86 145/86 H 07/24/24 04:33 75 97 07/24/24 04:30 16 07/24/24 04:28 71 98 07/24/24 04:23 81 99 07/24/24 04:18 80 98 07/24/24 04:17 82 92 07/24/24 04:16 72 152/87 H 07/24/24 04:13 36.5 C 93 H 16 100 07/24/24 04:10 62 161/88 H 07/24/24 04:08 71 100 07/24/24 04:03 69 98 07/24/24 03:58 64 98 07/24/24 03:53 56 L 145/76 H 99 07/24/24 03:48 66 98 07/24/24 03:43 61 98 07/24/24 03:38 64 98 07/24/24 03:37 65 128/69 07/24/24 03:33 62 99 07/24/24 03:30 16 07/24/24 03:28 68 99 07/24/24 03:23 63 99 07/24/24 03:22 81 124/64 07/24/24 03:18 62 99 07/24/24 03:13 64 99 07/24/24 03:08 61 99 07/24/24 03:07 61 137/69 07/24/24 03:03 61 99 07/24/24 02:58 63 98 07/24/24 02:53 63 99 07/24/24 02:52 75 119/61 07/24/24 02:48 65 98 07/24/24 02:43 64 98 07/24/24 02:38 97 07/24/24 02:38 64 07/24/24 02:38 64 134/70 07/24/24 02:33 64 97 07/24/24 02:30 16 07/24/24 02:28 64 97 07/24/24 02:23 62 97 07/24/24 02:22 58 L 134/75 07/24/24 02:18 90 100 07/24/24 02:13 64 99 07/24/24 02:09 63 136/78 07/24/24 02:08 63 99 07/24/24 02:03 81 99 07/24/24 01:58 65 98 07/24/24 01:53 98 07/24/24 01:53 68 07/24/24 01:53 67 134/68 07/24/24 01:48 64 99 07/24/24 01:43 84 98 07/24/24 01:38 63 98 07/24/24 01:37 80 135/67 07/24/24 01:33 63 98 07/24/24 01:30 16 07/24/24 01:28 64 98 07/24/24 01:23 67 98 07/24/24 01:22 67 132/65 07/24/24 01:18 66 98 07/24/24 01:13 64 98 07/24/24 01:08 67 98 07/24/24 01:07 68 131/66 07/24/24 01:03 69 98 07/24/24 00:58 64 98 07/24/24 00:53 98 07/24/24 00:53 67 07/24/24 00:53 69 130/69 07/24/24 00:48 67 98 07/24/24 00:43 64 98 07/24/24 00:38 98 07/24/24 00:38 67 07/24/24 00:38 66 130/67 07/24/24 00:33 66 98 07/24/24 00:30 16 07/24/24 00:28 63 98 07/24/24 00:23 97 07/24/24 00:23 64 07/24/24 00:23 65 131/67 07/24/24 00:18 64 97 07/24/24 00:13 64 98 07/24/24 00:08 65 97 07/24/24 00:07 65 128/65 07/24/24 00:03 66 97
[2024-07-24] MEDS: ACETAMINOPHEN 500 MG TAB PO SCH (12:28)
[2024-07-24] MEDS: ceFAZolin 3000MG 3,000 MG/72.5 ML BAG IV SCH (12:29)
[2024-07-24] MEDS ORDERED: MoRPHine SULFATE PF 1 MG/ML 10 ML AMP/VIAL EPI ONE (12:34)
[2024-07-24] MEDS ORDERED: HYDROmorphone INJ 0.5 MG/0.5 ML SYR IV PRN (12:34)
[2024-07-24] MEDS ORDERED: NALOXONE HCL 0.08 MG in SYRINGE 1.8 ML IV PRN (12:34)
[2024-07-24] MEDS ORDERED: MoRPHine SULFATE 2 MG/ML CARP IV PRN (12:34)
[2024-07-24] MEDS ORDERED: DC INTRASPINAL MORPHINE SCH (12:45)
[2024-07-24] MEDS ORDERED: NO NARCOTICS OR SEDATIVES SCH (12:45)
[2024-07-24] MEDS: AZITHROMYCIN 500 MG in SODIUM CHLORIDE 0.9% 250 ML IV SCH (13:00)
[2024-07-24] MEDS ORDERED: DEXAMETHASONE SOD INJ 4 MG/ML VIAL ONE (13:05)
[2024-07-24] MEDS ORDERED: ONDANSETRON INJ 2 MG/ML 2 ML VIAL ONE (13:05)
[2024-07-24] MEDS: OXYTOCIN 20 UNITS/LR 1,002 ML IV SCH (14:37)
[2024-07-24] MEDS ORDERED: MAGNESIUM HYDROXIDE SUSP 30 ML UDC PO PRN (14:40)
[2024-07-24] MEDS ORDERED: HYDROCORTISONE ACETATE 25 MG SUPP PR PRN (14:40)
[2024-07-24] MEDS ORDERED: SENNA 8.6 MG TAB PO PRN (14:40)
[2024-07-24] MEDS ORDERED: CALCIUM CARBONATE 500 MG CHEWABLE TAB PO PRN (14:40)
[2024-07-24] MEDS ORDERED: BENZOCAINE 20% SPRY 85 APPLN/85 GM CAN EXT PRN (14:40)
--- NOTE | 2024-07-24 14:50 | Operative Report ---
Post Operative Report Pre & Post Diagnosis Operation Date: 07/24/24 12:30 Pre-Op Diagnosis: Intolerance to Labor Post-Op Diagnosis: Intolerance to Labor I identified the patient and participated in the time-out.: Yes Procedure Operation Date: 07/24/24 12:30 Actual Procedures p Section in LD With Result of Live Male Child Born at 1328 - Anastacia Joés MD Surgeon Anastacia José MD Mathematician ROSELIA Majano Quantitative Blood Loss (QBL) 674 ml Findings Consistent with Post-Op Diagnosis Baby was a viable male infant delivered at 1320 8 PM, Apgars 7/9, weight is 214 0 g, Maternal findings normal uterus, fallopian tubes and ovaries Specimens Placenta Drains Diehl catheter drained 100 mL of clear urine Anesthesia Type Labor Epidural Complications none Indications Patient is a 29-year-old G1, P0 at 40 weeks and 2 days of gestation who was admitted yesterday for postdates and preeclampsia with severe features, started on IV magnesium for seizure Fluxid prophylaxis and cervical ripening with vaginal Cervidil and p.o. Cytotec. She was switched to Diehl balloon for mechanical dilatation and IV oxytocin per protocol. After oxytocin was started heart rate started to have late decelerations after each contraction, decreased variability, category 2 strip, remote from delivery. Decision was made to proceed with delivery of the . Description of Procedure Patient was taken to operating room where a spinal anesthesia was given without difficulty. She was placed in dorsal supine position with a leftward tilt. She was prepared and draped in usual sterile fashion. A financial skin incision was made and carried through to the underlying layer of fascia with the Bovie. Fascia was incised in the midline and incision was extended laterally with the help of Nichols scissors. Then the upper aspect of the fascial incision was grasped with 2 Nupur clamps elevated the underlying rectus muscles were d issected off sharply with Nichols scissors. Same thing was done on the lower incision. Then the muscles were in the midline, peritoneum was identified grasped with 2 pickups and entered sharply with Metzenbaum scissors. Peritoneal incision was extended superior and inferiorly with good visualization of the bladder. The bladder blade was inserted. Vesicouterine peritoneum was identified, grasped with pickups and entered sharply with Metzenbaum scissors, bladder flap was created digitally and bladder blade was reinserted. Uterus was incised in transverse fashion, incision was extended laterally, membranes were ruptured and meconium stained fluid was obtained. Baby's head was delivered without difficulty, followed by shoulders and body without difficulty. Mouth and nose were suctioned there was dried on the field, The cord was clamped times and cut and then the infant was handed off to the pediatric team. Then the placenta was delivered manually as intact and complete. Uterus was externalized and cleared of all clots and debris's. Uterine incision was repaired with 0 Vicryl in a running locked fashion, second umbricating layer was placed with the same suture in running locked fashion. Excellent hemostasis achieved. Cul-de-sac and the pelvis was irrigated with warm normal saline and suctioned. Incision was checked of anesthetic again. Uterus was returned to the abdomen, parietal peritoneum was reapproximated with 3-0 Vicryl in a running fashion and the muscles were reapproximated in the same suture in a running fashion. All of the fascia and rectus muscles were hemostatic. Rectus fascia was reapproximated with 0 Vicryl starting from both columns meeting in the midline. Subcuticular fat tissue was brought together with 2-0 Vicryl in a running fashion, skin was closed with 4-0 Monocryl in a subcuticular cuticular fashion. The mom and baby tolerated procedure well. Sponge needle instrument count was correct x3. she was given 3 g of cefazolin and 500 mg of Azithromycin before surgery. No complications happened, I was present during whole procedure. My medical claims assistant was needed for retraction, hemostasis and aid during delivery of infant I attest to the content of the Intraoperative Record and any orders documented therein. Any exceptions are noted below.
[2024-07-24] MEDS: DIPHTHER/TETAN/PERTUS Vaccine (Tdap, Adol/Adult) 0.5mL IM ONE (15:22)
[2024-07-24] MEDS: CITRIC ACID/SODIUM CITRATE 15 ML UDC PO SCH (15:22)
[2024-07-24] MEDS: MEASLES, MUMPS & RUBELLA VIRUS VACCINE (MMR) 0.5ML VIAL SQ ONE (15:23)
--- NOTE | 2024-07-24 15:33 | Anesthesia Procedure Note ---
Date of Service July 24, 2024 Anesthesia Post Epidural Note Vital Signs Vital Signs: Temp Pulse Resp BP Pulse Ox O2 Del Method 36.7 C 61 19 161/70 H 98 Room Air 07/24/24 14:24 07/24/24 15:30 07/24/24 14:37 07/24/24 15:27 07/24/24 15:30 07/23/24 19:20 Pain Intensity Lower Back: Pain Intensity: 5 Lower Medial Abdomen: Pain Intensity: 0 Notes Mental Status: alert / awake / arousable and participated in evaluation Nausea / Vomiting: adequately controlled Pain: adequately controlled Airway Patency, RR, SpO2: stable & adequate BP & HR: stable & adequate Hydration State: stable & adequate Neuraxial Anesthesia: was administered and sensory block resolved Anesthetic Complications: no major complications apparent and Pt Satisfied with anesthetic care Epidural: Removed without complications and With tip intact
--- NOTE | 2024-07-24 15:33 | Anesthesiology Progress Note ---
Date of Service July 24, 2024 Anesthesia Post Procedure Vital Signs Vital Signs: Temp Pulse Resp BP Pulse Ox O2 Del Method 07/24/24 15:30 61 98 07/24/24 15:27 64 161/70 H 07/24/24 15:25 61 96 07/24/24 15:20 64 97 07/24/24 15:17 58 L 150/82 H 07/24/24 15:15 76 97 07/24/24 15:10 67 97 07/24/24 15:07 66 135/90 07/24/24 15:05 70 97 07/24/24 15:00 71 97 07/24/24 14:57 62 139/75 07/24/24 14:55 69 97 07/24/24 14:50 68 97 07/24/24 14:47 61 127/70 07/24/24 14:45 67 95 07/24/24 14:37 63 19 125/70 07/24/24 14:37 63 125/70 07/24/24 14:24 36.7 C 70 19 121/71 07/24/24 14:24 70 121/71 07/24/24 12:40 93 07/24/24 12:40 79 07/24/24 12:40 71 132/77 07/24/24 12:35 74 94 07/24/24 12:30 74 95 07/24/24 12:25 75 130/78 94 07/24/24 12:20 81 95 07/24/24 12:15 77 94 07/24/24 12:10 96 07/24/24 12:10 81 07/24/24 12:10 76 128/70 07/24/24 12:05 80 95 07/24/24 12:00 82 96 07/24/24 11:55 69 120/70 96 07/24/24 11:50 71 95 07/24/24 11:45 68 94 07/24/24 11:40 94 07/24/24 11:40 59 L 07/24/24 11:40 67 121/69 07/24/24 11:35 71 95 07/24/24 11:30 56 L 93 07/24/24 11:25 65 114/65 94 07/24/24 11:20 79 95 07/24/24 11:15 65 92 07/24/24 11:10 63 93 07/24/24 11:07 64 91 07/24/24 11:06 65 114/60 07/24/24 11:05 66 92 07/24/24 11:01 75 111/59 L 07/24/24 11:00 36.6 C 72 95 07/24/24 10:59 16 07/24/24 10:59 16 07/24/24 10:56 71 116/64 07/24/24 10:55 74 96 07/24/24 10:51 74 112/65 07/24/24 10:50 72 94 07/24/24 10:46 75 115/65 07/24/24 10:44 18 07/24/24 10:44 18 07/24/24 10:43 73 96 07/24/24 10:41 75 120/71 07/24/24 10:39 18 07/24/24 10:39 18 07/24/24 10:38 77 95 07/24/24 10:36 75 117/74 07/24/24 10:34 72 18 131/84 07/24/24 10:33 76 96 07/24/24 10:31 69 129/83 07/24/24 10:28 82 96 07/24/24 10:26 78 139/86 07/24/24 10:23 91 H 96 07/24/24 10:22 80 90 07/24/24 10:21 77 165/92 H 07/24/24 10:18 85 98 07/24/24 10:16 77 161/93 H 07/24/24 10:13 97 H 96 07/24/24 10:11 79 156/88 H 07/24/24 10:08 75 95 07/24/24 10:06 80 167/94 H 07/24/24 10:03 78 96 07/24/24 10:01 77 157/90 H 07/24/24 09:58 93 H 99 07/24/24 09:56 82 152/84 H 07/24/24 09:53 83 96 07/24/24 09:50 83 173/95 H 07/24/24 09:48 82 96 07/24/24 09:45 85 172/88 H 07/24/24 09:43 91 H 98 07/24/24 09:42 104 H 183/96 H 07/24/24 09:38 100 H 98 07/24/24 09:34 82 153/88 H 07/24/24 09:33 79 97 07/24/24 09:28 91 H 98 07/24/24 09:23 82 96 07/24/24 09:19 79 152/91 H 07/24/24 09:18 87 98 07/24/24 09:13 81 96 07/24/24 09:08 92 H 97 07/24/24 09:05 88 149/89 H 07/24/24 09:03 75 97 07/24/24 08:58 107 H 96 07/24/24 08:53 84 97 07/24/24 08:49 80 154/93 H 07/24/24 08:48 79 97 07/24/24 08:43 74 97 07/24/24 08:38 71 95 07/24/24 08:35 69 154/91 H 07/24/24 08:33 65 97 07/24/24 08:28 73 97 07/24/24 08:23 70 94 07/24/24 08:20 76 152/83 H 07/24/24 08:18 75 97 07/24/24 08:13 71 97 07/24/24 08:08 79 96 07/24/24 08:05 67 161/88 H 07/24/24 08:03 84 99 07/24/24 07:58 77 94 07/24/24 07:53 67 96 07/24/24 07:50 61 137/76 07/24/24 07:48 76 98 07/24/24 07:43 69 99 07/24/24 07:38 74 99 07/24/24 07:33 75 100 07/24/24 07:28 82 100 07/24/24 07:23 76 100 07/24/24 07:20 72 157/87 H 07/24/24 07:18 70 100 07/24/24 07:15 20 07/24/24 07:15 20 07/24/24 07:15 36.7 C 20 07/24/24 07:13 76 99 07/24/24 07:08 58 L 99 07/24/24 07:04 64 126/70 07/24/24 07:03 61 99 07/24/24 06:58 60 99 07/24/24 06:53 58 L 99 07/24/24 06:49 63 128/70 07/24/24 06:48 61 99 07/24/24 06:43 60 99 07/24/24 06:38 61 99 07/24/24 06:34 63 139/77 07/24/24 06:33 65 99 07/24/24 06:29 16 07/24/24 06:28 62 99 07/24/24 06:23 62 99 07/24/24 06:20 63 136/79 07/24/24 06:18 64 98 07/24/24 06:13 74 100 07/24/24 06:08 75 100 07/24/24 06:04 80 156/94 H 07/24/24 06:03 84 99 07/24/24 05:58 97 07/24/24 05:58 80 07/24/24 05:58 85 156/97 H 07/24/24 05:53 110 H 98 07/24/24 05:48 83 99 07/24/24 05:43 61 99 07/24/24 05:38 59 L 99 07/24/24 05:36 61 141/85 H 07/24/24 05:33 83 100 07/24/24 05:30 16 07/24/24 05:28 66 100 07/24/24 05:23 65 99 07/24/24 05:19 62 126/75 07/24/24 05:18 71 100 07/24/24 05:13 58 L 93 07/24/24 05:09 59 L 94 07/24/24 05:08 56 L 94 07/24/24 05:04 58 L 121/73 07/24/24 05:03 56 L 94 07/24/24 05:01 60 94 07/24/24 04:58 58 L 95 07/24/24 04:53 58 L 95 07/24/24 04:50 56 L 130/74 07/24/24 04:48 57 L 96 07/24/24 04:43 62 96 07/24/24 04:38 73 98 07/24/24 04:34 86 145/86 H 07/24/24 04:33 75 97 07/24/24 04:30 16 07/24/24 04:28 71 98 07/24/24 04:23 81 99 07/24/24 04:18 80 98 07/24/24 04:17 82 92 07/24/24 04:16 72 152/87 H 07/24/24 04:13 36.5 C 93 H 16 100 07/24/24 04:10 62 161/88 H 07/24/24 04:08 71 100 07/24/24 04:03 69 98 07/24/24 03:58 64 98 07/24/24 03:53 56 L 145/76 H 99 07/24/24 03:48 66 98 07/24/24 03:43 61 98 07/24/24 03:38 64 98 07/24/24 03:37 65 128/69 07/24/24 03:33 62 99 07/24/24 03:30 16 07/24/24 03:28 68 99 07/24/24 03:23 63 99 07/24/24 03:22 81 124/64 07/24/24 03:18 62 99 07/24/24 03:13 64 99 07/24/24 03:08 61 99 07/24/24 03:07 61 137/69 07/24/24 03:03 61 99 07/24/24 02:58 63 98 07/24/24 02:53 63 99 07/24/24 02:52 75 119/61 07/24/24 02:48 65 98 07/24/24 02:43 64 98 07/24/24 02:38 97 07/24/24 02:38 64 07/24/24 02:38 64 134/70 07/24/24 02:33 64 97 07/24/24 02:30 16 07/24/24 02:28 64 97 07/24/24 02:23 62 97 07/24/24 02:22 58 L 134/75 07/24/24 02:18 90 100 07/24/24 02:13 64 99 07/24/24 02:09 63 136/78 07/24/24 02:08 63 99 07/24/24 02:03 81 99 07/24/24 01:58 65 98 07/24/24 01:53 98 07/24/24 01:53 68 07/24/24 01:53 67 134/68 07/24/24 01:48 64 99 07/24/24 01:43 84 98 07/24/24 01:38 63 98 07/24/24 01:37 80 135/67 07/24/24 01:33 63 98 07/24/24 01:30 16 07/24/24 01:28 64 98 07/24/24 01:23 67 98 07/24/24 01:22 67 132/65 07/24/24 01:18 66 98 07/24/24 01:13 64 98 07/24/24 01:08 67 98 07/24/24 01:07 68 131/66 07/24/24 01:03 69 98 07/24/24 00:58 64 98 07/24/24 00:53 98 07/24/24 00:53 67 07/24/24 00:53 69 130/69 07/24/24 00:48 67 98 07/24/24 00:43 64 98 07/24/24 00:38 98 07/24/24 00:38 67 07/24/24 00:38 66 130/67 07/24/24 00:33 66 98 07/24/24 00:30 16 07/24/24 00:28 63 98 07/24/24 00:23 97 07/24/24 00:23 64 07/24/24 00:23 65 131/67 07/24/24 00:18 64 97 07/24/24 00:13 64 98 07/24/24 00:08 65 97 07/24/24 00:07 65 128/65 07/24/24 00:03 66 97 07/23/24 23:58 97 07/23/24 23:58 67 07/23/24 23:53 97 07/23/24 23:53 64 07/23/24 23:52 63 07/23/24 23:52 127/67 07/23/24 23:48 97 07/23/24 23:48 65 07/23/24 23:43 97 07/23/24 23:43 65 07/23/24 23:38 98 07/23/24 23:38 69 07/23/24 23:38 122/71 07/23/24 23:33 97 07/23/24 23:33 66 07/23/24 23:28 97 07/23/24 23:28 63 07/23/24 23:23 98 07/23/24 23:23 67 07/23/24 23:23 64 07/23/24 23:23 144/72 H 07/23/24 23:20 16 07/23/24 23:20 16 07/23/24 23:20 36.6 C 16 07/23/24 23:18 100 07/23/24 23:18 79 07/23/24 23:13 98 07/23/24 23:13 82 07/23/24 23:08 100 07/23/24 23:08 88 07/23/24 23:07 71 07/23/24 23:07 159/86 H 07/23/24 23:03 98 07/23/24 23:03 83 07/23/24 22:58 98 07/23/24 22:58 82 07/23/24 22:54 75 07/23/24 22:54 159/86 H 07/23/24 22:53 100 07/23/24 22:53 74 07/23/24 22:47 98 07/23/24 22:47 69 07/23/24 22:42 99 07/23/24 22:42 74 07/23/24 22:39 69 07/23/24 22:39 143/91 H 07/23/24 22:37 99 07/23/24 22:37 65 07/23/24 22:32 99 07/23/24 22:32 69 07/23/24 22:27 16 07/23/24 22:27 100 07/23/24 22:27 77 07/23/24 22:22 97 07/23/24 22:22 77 07/23/24 22:21 72 07/23/24 22:21 155/87 H 07/23/24 22:17 96 07/23/24 22:17 73 07/23/24 22:15 75 07/23/24 22:15 147/84 H 07/23/24 22:12 98 07/23/24 22:12 76 07/23/24 22:11 91 07/23/24 22:11 88 07/23/24 22:10 78 07/23/24 22:10 144/79 H 07/23/24 22:07 98 07/23/24 22:07 83 07/23/24 22:05 77 07/23/24 22:05 138/73 07/23/24 22:02 97 07/23/24 22:02 78 07/23/24 22:01 85 07/23/24 22:01 151/82 H 07/23/24 22:00 18 07/23/24 22:00 18 07/23/24 21:57 99 07/23/24 21:57 79 07/23/24 21:55 78 143/80 H 07/23/24 21:55 78 07/23/24 21:55 143/80 H 07/23/24 21:52 100 07/23/24 21:52 64 07/23/24 21:49 76 07/23/24 21:49 143/73 H 07/23/24 21:47 100 07/23/24 21:47 80 07/23/24 21:42 99 07/23/24 21:42 82 07/23/24 21:40 16 07/23/24 21:40 77 164/80 H 07/23/24 21:37 100 07/23/24 21:37 78 07/23/24 21:35 86 07/23/24 21:35 151/73 H 07/23/24 21:32 100 07/23/24 21:32 65 07/23/24 21:27 100 07/23/24 21:27 68 07/23/24 21:22 100 07/23/24 21:22 65 07/23/24 21:22 164/80 H 07/23/24 21:17 100 07/23/24 21:17 66 07/23/24 21:12 100 07/23/24 21:12 70 07/23/24 21:07 100 07/23/24 21:07 67 07/23/24 21:06 68 07/23/24 21:06 156/81 H 07/23/24 21:02 99 07/23/24 21:02 65 07/23/24 21:00 16 07/23/24 21:00 16 07/23/24 20:57 100 07/23/24 20:57 72 07/23/24 20:52 99 07/23/24 20:52 67 07/23/24 20:51 63 07/23/24 20:51 151/77 H 07/23/24 20:47 100 07/23/24 20:47 63 07/23/24 20:42 100 07/23/24 20:42 68 07/23/24 20:37 99 01/28/25 20:37 66 07/23/24 20:35 64 07/23/24 20:35 153/84 H 07/23/24 20:32 100 07/23/24 20:32 63 07/23/24 20:30 16 07/23/24 20:27 100 07/23/24 20:27 66 07/23/24 20:22 100 07/23/24 20:22 63 07/23/24 20:20 65 07/23/24 20:20 151/86 H 07/23/24 20:17 100 07/23/24 20:17 73 07/23/24 20:12 100 07/23/24 20:12 69 07/23/24 20:07 100 07/23/24 20:07 84 07/23/24 20:05 72 07/23/24 20:05 149/85 H 07/23/24 20:02 99 07/23/24 20:02 69 07/23/24 19:57 100 07/23/24 19:57 76 07/23/24 19:52 100 07/23/24 19:52 63 07/23/24 19:51 67 07/23/24 19:51 158/90 H 07/23/24 19:47 100 07/23/24 19:47 69 07/23/24 19:42 100 07/23/24 19:42 71 07/23/24 19:37 100 07/23/24 19:37 74 07/23/24 19:35 66 07/23/24 19:35 150/88 H 07/23/24 19:32 100 07/23/24 19:32 77 07/23/24 19:27 100 07/23/24 19:27 75 07/23/24 19:25 18 07/23/24 19:25 37.0 C 18 07/23/24 19:22 100 07/23/24 19:22 76 07/23/24 19:21 75 07/23/24 19:21 158/92 H 07/23/24 19:20 18 07/23/24 19:20 Room Air 07/23/24 19:17 100 07/23/24 19:17 86 07/23/24 19:12 100 07/23/24 19:12 86 07/23/24 19:07 100 07/23/24 19:07 64 07/23/24 19:06 64 07/23/24 19:06 154/86 H 07/23/24 19:02 100 07/23/24 19:02 90 07/23/24 18:57 100 07/23/24 18:57 76 07/23/24 18:52 100 07/23/24 18:52 76 07/23/24 18:52 165/86 H 07/23/24 18:47 100 07/23/24 18:47 73 07/23/24 18:42 100 07/23/24 18:42 76 07/23/24 18:37 100 07/23/24 18:37 72 07/23/24 18:37 155/98 H 07/23/24 18:32 100 07/23/24 18:32 72 07/23/24 18:30 71 07/23/24 18:30 166/98 H 07/23/24 18:27 100 07/23/24 18:27 79 07/23/24 18:22 99 07/23/24 18:22 68 07/23/24 18:21 80 07/23/24 18:21 174/105 H 07/23/24 18:17 100 07/23/24 18:17 80 07/23/24 18:06 81 07/23/24 18:06 159/88 H 07/23/24 18:02 67 07/23/24 18:02 163/87 H 07/23/24 17:55 16 07/23/24 17:51 75 07/23/24 17:51 188/92 H 07/23/24 17:45 16 07/23/24 17:37 74 07/23/24 17:37 187/92 H 07/23/24 17:30 18 07/23/24 17:24 16 07/23/24 17:24 36.8 C 16 07/23/24 17:19 64 07/23/24 17:19 171/82 H 07/23/24 17:15 18 07/23/24 17:15 18 07/23/24 17:14 64 07/23/24 17:14 161/86 H 07/23/24 17:11 70 07/23/24 17:11 192/95 H 07/23/24 17:03 71 07/23/24 17:03 206/79 H 07/23/24 17:00 89 07/23/24 17:00 207/110 H 07/23/24 16:55 18 07/23/24 16:55 74 165/88 H 07/23/24 16:55 78 07/23/24 16:55 199/97 H 07/23/24 16:50 74 07/23/24 16:50 165/88 H 07/23/24 16:46 66 07/23/24 16:46 151/85 H 07/23/24 16:42 68 192/88 H 07/23/24 16:36 68 07/23/24 16:36 192/88 H 07/23/24 16:28 58 L 07/23/24 16:28 196/95 H 07/23/24 16:22 69 07/23/24 16:22 194/104 H 07/23/24 16:02 75 07/23/24 16:02 155/83 H 07/23/24 15:58 78 07/23/24 15:58 222/113 H 07/23/24 15:48 75 07/23/24 15:48 197/98 H 07/23/24 15:45 90 07/23/24 15:45 170/103 H 07/23/24 15:43 99 07/23/24 15:43 56 L 07/23/24 15:38 98 07/23/24 15:38 69 Pain Intensity Lower Back: Pain Intensity: 5 Lower Medial Abdomen: Pain Intensity: 0 Transfer of Care Handoff Completed per policy Notes Mental Status: alert / awake / arousable and participated in evaluation Patient Amnestic to Procedure: Yes Nausea / Vomiting: adequately controlled Pain: adequately controlled Airway Patency, RR, SpO2: stable & adequate BP & HR: stable & adequate Hydration State: stable & adequate Anesthetic Complications: no major complications apparent and Pt Satisfied with anesthetic care
[2024-07-24] MEDS: ACETAMINOPHEN 325 MG TAB PO SCH (15:46)
[2024-07-24] MEDS: SIMETHICONE 80 MG CHEW PO SCH (18:17)
[2024-07-24] MEDS: DOCUSATE SODIUM 100 MG CAP PO SCH (21:38)
[2024-07-25] MEDS: KETOROLAC 30 MG/ML VIAL IV PRN (04:00)
[2024-07-25] MEDS ORDERED: diphenhydrAMINE 50 MG/ML VIAL IV PRN (06:35)
[2024-07-25] MEDS ORDERED: PROMETHAZINE 12.5 MG/50.5 ML BAG IV PRN (06:35)
[2024-07-25] MEDS ORDERED: diphenhydrAMINE Capsule 25 MG CAP PO PRN (06:35)
[2024-07-25] MEDS ORDERED: ONDANSETRON INJ 2 MG/ML 2 ML VIAL IV PRN (06:35)
[2024-07-25] MEDS ORDERED: oxyCODONE HCL IR 5 MG TAB (IMMEDIATE RELEASE) PO PRN (06:35)
[2024-07-25] MEDS ORDERED: HYDROmorphone INJ 0.5 MG/0.5 ML SYR IV PRN (06:35)
[2024-07-25 06:50] LABS: Basophils # (auto) 0.03 K/uL (0.00-0.20); Basophils % (auto) 0.2 %; Eosinophils # (auto) 0.01 K/uL (0.00-0.50); Eosinophils % (auto) 0.1 %; Hematocrit (blood only) 28.3 % (37.0-47.0); Hemoglobin 9.7 g/dl (12.0-16.0); Immature Granulocytes # (auto) 0.13 K/uL (0.01-0.20); Immature Granulocytes % (auto) 0.7 %; Lymphocytes # (auto) 1.93 K/uL (1.20-3.40); Lymphocytes % (auto) 10.8 %; Mean Corpuscular Hgb Conc 34.3 g/dL (32.0-36.0); Mean Corpuscular Volume 84.5 fL (80.0-100.0); Mean Platelet Volume 9.6 fL (9.4-12.4); Monocytes # (auto) 0.96 K/uL (0.11-0.59); Monocytes % (auto) 5.4 %; Neutrophils % (auto) 82.8 %; Platelet Count 266 K/uL (130-400); RDW Coefficient of Variation 12.9 % (11.5-14.5); RDW Standard Deviation 39.1 fL (36.4-46.3); Red Blood Count 3.35 M/uL (4.20-5.40); White Blood Count 17.86 K/ul (4.8-10.8)
[2024-07-25 06:51] LABS: BUN Creatinine Ratio 15.8 (10-20); Calcium 6.7 mg/dl (8.6-10.3); Creatinine Clr Calc Pharmacy 181.4 ml/min; Potassium 4.3 mmol/L (3.5-5.1)
[2024-07-25 07:01] LABS: Albumin Globulin Ratio 1.2 (0.9-2); Albumin Level 2.7 gm/dl (3.4-5.0); Bilirubin,Total 0.2 mg/dl (0.2-1.0); Globulin 2.3 gm/dl (2.5-4.0)
[2024-07-25 07:02] LABS: Magnesium Therapeutic L&D Only 5.4 mg/dL (4.0-8.0)
[2024-07-25] MEDS ORDERED: LEVOTHYROXINE SODIUM 125 MCG TABLET PO SCH (09:00)
[2024-07-25] MEDS ORDERED: NON-FORMULARY MEDICATION (Prenatal 1 TAB) PO SCH (09:00)
[2024-07-25] MEDS: FERROUS SULFATE 325 MG TAB PO SCH (10:17)
[2024-07-25] MEDS: PRENATAL VITAMIN 1 TAB PO SCH (10:17)
[2024-07-25] MEDS: IBUPROFEN 600 MG TAB PO SCH (15:49)
[2024-07-25] MEDS: bisacodyL 5 MG TABEC PO SCH (22:09)
[2024-07-26 06:50] LABS: Hematocrit (blood only) 26.3 % (37.0-47.0); Hemoglobin 9.2 g/dl (12.0-16.0)
--- NOTE | 2024-07-26 08:03 | Obstetrical Progress Note ---
Date of Service July 26, 2024 Assessment & Plan (1) Normal course: Present on Admission?: No (2) Pre-eclampsia affecting , antepartum: Present on Admission?: Yes (3) Post term over 40 weeks: Present on Admission?: Yes (4) Encounter for induction of labor: Present on Admission?: Yes Plan continue routine care , C/S #2 S/P Mgso4 for preeclampsia Continue Labetalol as ordered Regular diet Encourage ambulation discharge plan for later this evening or tomorrow Admission and Anticipated Discharge Date Admission Date: July 23, 2024 Subjective pt doing well. Pt denies heavy vaginal bleeding, surgical pain, head aches, blurry vision, epigastric pain, shortness of breadth, palpitations, dizziness etc. normal lochia. Pumping breast milk. passing flatus, had bowel movement. denies urinary issues. Review of Systems Review of Systems: All systems reviewed & are unremarkable except as noted in HPI & below Constitutional: as per Subjective / HPI Respiratory: as per Subjective / HPI Cardiovascular: as per Subjective / HPI Gastrointestinal: as per Subjective / HPI Genitourinary: as per Subjective / HPI Physical Exam Constitutional: WD/WN, vitals as above Respiratory: normal respiratory effort, lungs clear to auscultation Cardiovascular: RRR, no murmur, no edema Psychiatric: A+Ox3, euthymic affect Genitourinary: deferred Results & Data Vital Signs (Past 12 Hours) Vital Signs Temp Pulse Resp BP BP Pulse Ox O2 Del Method 07/26/24 06:44 88 99/59 L 07/25/24 23:24 36.8 C 82 16 120/73 95 Room Air 07/25/24 22:12 88 124/74
[2024-07-26] MEDS ORDERED: bisacodyL 10 MG SUPP PR PRN (14:40)
[2024-07-26] MEDS: ACETAMINOPHEN 325 MG TAB PO PRN (17:17)
[2024-07-26] MEDS: IBUPROFEN 600 MG TAB PO PRN (17:18)
[2024-07-26 22:22] VITALS: RESP 16; O2SAT 97
[2024-07-27 06:13] VITALS: PULSE 76
[2024-07-27 06:39] LABS: Basophils # (auto) 0.02 K/uL (0.00-0.20); Basophils % (auto) 0.2 %; Eosinophils # (auto) 0.27 K/uL (0.00-0.50); Eosinophils % (auto) 2.4 %; Hematocrit (blood only) 27.7 % (37.0-47.0); Hemoglobin 9.1 g/dl (12.0-16.0); Immature Granulocytes # (auto) 0.14 K/uL (0.01-0.20); Immature Granulocytes % (auto) 1.2 %; Lymphocytes # (auto) 2.63 K/uL (1.20-3.40); Lymphocytes % (auto) 23.4 %; Mean Corpuscular Hemoglobin 28.8 pg (25.0-34.0); Mean Corpuscular Hgb Conc 32.9 g/dL (32.0-36.0); Mean Corpuscular Volume 87.7 fL (80.0-100.0); Monocytes # (auto) 0.81 K/uL (0.11-0.59); Monocytes % (auto) 7.2 %; Neutrophils # (auto) 7.36 K/uL (1.40-6.50); Neutrophils % (auto) 65.6 %; Platelet Count 259 K/uL (130-400); RDW Coefficient of Variation 13.3 % (11.5-14.5); RDW Standard Deviation 42.3 fL (36.4-46.3); Red Blood Count 3.16 M/uL (4.20-5.40); White Blood Count 11.23 K/ul (4.8-10.8)
[2024-07-27 07:59] VITALS: BP 148/86; TEMP 97.9
--- NOTE | 2024-07-27 09:14 | Obstetrical Progress Note ---
Date of Service July 27, 2024 Assessment & Plan Admission and Anticipated Discharge Date Admission Date: July 23, 2024 Subjective Patient is seen and examined. She feels well, no complaints. Pain is under control with oral meds. Ambulating without dizziness Voiding without difficulty Tolerating regular diet with out N&V Flatus + BM + Bleeding is minimal No fever/ chills/ CP/ SOB/ N&V/ Leg pain Breast feeding without problems Vital Signs Temp Pulse Pulse Resp BP BP Pulse Ox 07/27/24 07:56 36.6 C 76 16 148/86 H 97 07/27/24 06:11 76 140/95 07/27/24 00:00 36.7 C 88 16 116/65 97 07/26/24 20:30 37.2 C 88 16 135/79 97 07/26/24 17:00 36.9 C 71 18 140/90 98 07/26/24 15:22 69 142/88 H O2 Del Method 07/27/24 07:56 Room Air 07/27/24 06:11 07/27/24 00:00 Room Air 07/26/24 20:30 Room Air 07/26/24 17:00 Room Air 07/26/24 15:22 Lab Results 07/23/24 07/23/24 07/24/24 Range/Units 08:25 09:27 09:01 WBC 13.78 H 14.58 H (4.8-10.8) K/ul RBC 4.56 4.51 (4.20-5.40) M/uL Hgb 13.2 13.0 (12.0-16.0) g/dl Hct 38.4 38.0 (37.0-47.0) % MCV 84.2 84.3 (80.0-100.0) fL MCH 28.9 28.8 (25.0-34.0) pg MCHC 34.4 34.2 (32.0-36.0) g/dL RDW Std Deviation 39.0 39.9 (36.4-46.3) fL RDW Coeff of Joel 12.9 13.2 (11.5-14.5) % Plt Count 327 304 (130-400) K/uL MPV 10.0 9.8 (9.4-12.4) fL Immature Gran % (Auto) 0.8 % Neut % (Auto) 82.0 % Lymph % (Auto) 13.1 % Vance % (Auto) 3.6 % Eos % (Auto) 0.3 % Baso % (Auto) 0.2 % Neut # (Auto) 11.96 H (1.40-6.50) K/uL Lymph # (Auto) 1.91 (1.20-3.40) K/uL Vance # (Auto) 0.53 (0.11-0.59) K/uL Eos # (Auto) 0.04 (0.00-0.50) K/uL Baso # (Auto) 0.03 (0.00-0.20) K/uL Immature Gran # (Auto) 0.11 (0.01-0.20) K/uL PT 9.4 (9.0-12.0) Seconds INR 0.9 (0.9-1.1) APTT 29 (21-31) Seconds PTT Ratio 1.1 Sodium 136 134 L (136-145) mmol/L Potassium 4.7 4.3 (3.5-5.1) mmol/L Chloride 103 104 (98-107) mmol/L Carbon Dioxide 28 23 (21-32) mmol/L Anion Gap 5 7 (3-11) BUN 8 7 (6-23) mg/dl Creatinine 0.80 0.65 (0.6-1.2) mg/dl Est Cr Clr Drug Dosing 129.2 159.1 ml/min eGFR 102.22 122.15 BUN/Creatinine Ratio 10.0 10.8 (10-20) Glucose 71 94 (70-99(Fasting)) mg/dl Calcium 9.1 7.6 L (8.6-10.3) mg/dl Magnesium Magnesium (Sulf Ther) 5.7 (4.0-8.0) mg/dL Total Bilirubin 0.3 0.3 (0.2-1.0) mg/dl Direct Bilirubin 0.0 (0-0.2) mg/dl AST 17 15 (13-39) U/L ALT 15 13 (7-52) U/L Alkaline Phosphatase 133 H 126 H (34-104) U/L Lactate Dehydrogenase 210 (86-244) U/L Total Protein 6.1 6.1 (6.0-8.3) gm/dl Albumin 3.3 L 3.2 L (3.4-5.0) gm/dl Globulin 2.9 (2.5-4.0) gm/dl Albumin/Globulin Ratio 1.1 (0.9-2) Ur Random Creatinine 66.1 mg/dl U Random Total Protein 241.6 H (0-11.9) mg/dl Protein/Creatinin Ratio 3.7 H (0-0.2) Treponema pallidum Ab Negative (Negative) Blood Type B Positive Antibody Screen NEGATIVE 07/25/24 07/26/24 07/27/24 Range/Units 06:18 06:24 05:39 WBC 17.86 H 11.23 H (4.8-10.8) K/ul RBC 3.35 L 3.16 L (4.20-5.40) M/uL Hgb 9.7 L D 9.2 L 9.1 L (12.0-16.0) g/dl Hct 28.3 L 26.3 L 27.7 L (37.0-47.0) % MCV 84.5 87.7 (80.0-100.0) fL MCH 29.0 28.8 (25.0-34.0) pg MCHC 34.3 32.9 (32.0-36.0) g/dL RDW Std Deviation 39.1 42.3 (36.4-46.3) fL RDW Coeff of Joel 12.9 13.3 (11.5-14.5) % Plt Count 266 259 (130-400) K/uL MPV 9.6 10.0 (9.4-12.4) fL Immature Gran % (Auto) 0.7 1.2 % Neut % (Auto) 82.8 65.6 % Lymph % (Auto) 10.8 23.4 % Vance % (Auto) 5.4 7.2 % Eos % (Auto) 0.1 2.4 % Baso % (Auto) 0.2 0.2 % Neut # (Auto) 14.80 H 7.36 H (1.40-6.50) K/uL Lymph # (Auto) 1.93 2.63 (1.20-3.40) K/uL Vance # (Auto) 0.96 H 0.81 H (0.11-0.59) K/uL Eos # (Auto) 0.01 0.27 (0.00-0.50) K/uL Baso # (Auto) 0.03 0.02 (0.00-0.20) K/uL Immature Gran # (Auto) 0.13 0.14 (0.01-0.20) K/uL PT (9.0-12.0) Seconds INR (0.9-1.1) APTT (21-31) Seconds PTT Ratio Sodium 128 L (136-145) mmol/L Potassium 4.3 (3.5-5.1) mmol/L Chloride 100 (98-107) mmol/L Carbon Dioxide 23 (21-32) mmol/L Anion Gap 5 (3-11) BUN 9 (6-23) mg/dl Creatinine 0.57 L (0.6-1.2) mg/dl Est Cr Clr Drug Dosing 181.4 ml/min eGFR 126.08 BUN/Creatinine Ratio 15.8 (10-20) Glucose 113 H (70-99(Fasting)) mg/dl Calcium 6.7 L (8.6-10.3) mg/dl Magnesium Cancelled Magnesium (Sulf Ther) 5.4 (4.0-8.0) mg/dL Total Bilirubin 0.2 (0.2-1.0) mg/dl Direct Bilirubin (0-0.2) mg/dl AST 14 (13-39) U/L ALT 9 (7-52) U/L Alkaline Phosphatase 90 (34-104) U/L Lactate Dehydrogenase (86-244) U/L Total Protein 5.0 L D (6.0-8.3) gm/dl Albumin 2.7 L (3.4-5.0) gm/dl Globulin 2.3 L (2.5-4.0) gm/dl Albumin/Globulin Ratio 1.2 (0.9-2) Ur Random Creatinine mg/dl U Random Total Protein (0-11.9) mg/dl Protein/Creatinin Ratio (0-0.2) Treponema pallidum Ab (Negative) Blood Type Antibody Screen PE: General: Alert, orientedx3, NAD CVS: S1S2 RRR Lungs; CTAB Abd: soft, NT, ND, BS+, fundus firm, below Umbilicus Incision/ BROOKE dressing: Clean, dry, intact Perineum intact, Lochia rubra minimal Ext; NT, no edema AP: 29 yo s/p C Section, pod# 3, preeclampsia with severe features, VSS Afebrile doing well On Labetalol, BP stable Continue routine postop care Encourage ambulation, PO intake All questions were answered D/C home f/u in office Results & Data Vital Signs (Past 12 Hours) Vital Signs Temp Pulse Pulse Resp BP BP Pulse Ox 07/27/24 07:56 36.6 C 76 16 148/86 H 97 07/27/24 06:11 76 140/95 07/27/24 00:00 36.7 C 88 16 116/65 97 O2 Del Method 07/27/24 07:56 Room Air 07/27/24 06:11 07/27/24 00:00 Room Air
== END 2024-07-27 12:20 | disposition home or self-care (01) | DRG 788 ==
LOC: OPB 08:01 → 4S1 08:08 → 4E1 07-25 17:18